=== PATIENT | female | born 1975 | race Caucasian/White ===

== ENCOUNTER 2017-11-09 11:11 | Emergency (ER) | payer MEDICAID, SELFPAY ==
[2017-11-09 11:12] VITALS: BP 144/90; PULSE 68; RESP 16; TEMP 36.8; O2SAT 99; BMI 29.0
--- NOTE | 2017-11-09 11:24 | RAD_ITS ---
STUDY: X-RAY CHEST REASON FOR EXAM: Female, 42 years old. Left-sided chest pain radiating to the scapula TECHNIQUE: Single view of the chest was obtained COMPARISON: April 05, 2014 chest radiograph. FINDINGS: No lung consolidation, pleural effusion or pneumothorax. Cardiac size appears slightly prominent. Osseous structures demonstrate no acute maladies. Slightly elevated right hemidiaphragm. IMPRESSION: No evidence for focal airspace disease. Electronically Signed: Jake Jimenez, at 12:12 EDT Tel , Service support , RAD/Chest 1 View (Portable)
--- NOTE | 2017-11-09 11:25 | EKG12_ITS ---
Test Reason : CHEST OTHER Blood Pressure : / mmHG Vent. Rate : 053 BPM Atrial Rate : 053 BPM P-R Int : 156 ms QRS Dur : 072 ms QT Int : 412 ms P-R-T Axes : 055 084 052 degrees QTc Int : 386 ms Sinus bradycardia Septal infarct , age undetermined Abnormal ECG Confirmed by DAVID RUTHERFORD, MARCIA ([id number]), assignment desk editor SEBASTIAN GILMORE ([id number]) on 11/11/2017 3:29:10 PM Referred By: DEYA Confirmed By:MARCIA HERNANDEZ MD
[2017-11-09 11:26] VITALS: BP 136/90; PULSE 54; RESP 17; O2SAT 98
[2017-11-09] MEDS: Aspirin 81 MG TAB.CHEW 324 MG PO (11:33)
[2017-11-09] MEDS: 0.9% Normal Saline 1,000 ML 150 ML IV (11:33)
[2017-11-09 11:43] LABS: Absolute Neutrophil Count 8.4 X10^3/uL (2.0-7.7); Basophil# 0.02 X10^3/uL; Basophil% 0.2 % (0-1); Eosinophil# 0.22 X10^3/uL; Eosinophils% 1.9 % (0-5); Hematocrit 40.9 % (37-47); Hemoglobin 13.5 g/dl (12.0-15.0); Lymphocyte % 18.5 % (19-41); Mean Corpuscular Hgb 31.2 pg (27.0-32.0); Mean Corpuscular Volume 94.5 fL (81-99); Mean Platelet Vol. 10.3 fl (6.2-12.0); Monocyte# 0.64 X10^3/uL; Monocyte% 5.6 % (0-10); Neutrophil # 8.35 X10^3/uL (2.7-7.7); Neutrophil % 73.6 % (47-70); POSITIVE COUNT NO; POSITIVE DIFFERENTIAL NO; POSITIVE MORPHOLOGY NO; Platelet Count 281 K/mm3 (150-450); RBC Distribution Width CV 14.2 % (11.6-14.6); RBC Distribution Width SD 48.8 fl (35.1-43.9); Red Blood Count 4.33 M/mm3 (4.2-5.4); White Blood Count 11.4 K/mm3 (4.4-11.0)
[2017-11-09 11:54] LABS: D-Dimer Quantitative (DVT/PE) 0.67 FEU/ug/m (0.27-0.49)
--- NOTE | 2017-11-09 11:54 | ED.RN ---
D-DIMER 0.67. AWARE.
[2017-11-09 11:57] LABS: Anion Gap 4 (5-15); BUN 11 mg/dL (7-18); Calcium,Total 9.3 mg/dL (8.5-10.1); Chloride 108 mmol/L (98-107); Creatinine, Serum 0.78 mg/dL (0.55-1.02); EST Glomerular Filtration Rate 86 mL/min (>60); Est Glom Filt Rate - Afr Amer 104 mL/min (>60); Estimated Creatinine Clearance 81.96 ml/min; Glucose 97 mg/dL (74-106); Sodium Level 140 mmol/L (136-145)
--- NOTE | 2017-11-09 12:04 | CT_ITS ---
STUDY: CTA CHEST REASON FOR EXAM: Female, 42 years old. Chest and shoulder pain for many months. Worsening with breathing. History of muscular dystrophy RADIATION DOSAGE (If Supplied By Facility): CTDIvol = ( 23.26 ) mGy, DLP = ( 471.17 ) mGycm TECHNIQUE: The examination was performed with the intravenous administration of 100 ml of Isovue 370 contrast material. Post-processing of the angiographic images was performed, with multiplanar reformation and 3D reconstruction. Individualized dose optimization techniques were used for this CT. COMPARISON: None. FINDINGS: No definite evidence for aortic dissection. Main pulmonary artery and its major branches are within normal limits Beam hardening artifact at the left subclavian artery origin seen No axillary or mediastinal adenopathy No pericardial effusion. Mild dilatation of the left ventricle which can be assessed with cardiac echo. Prior cholecystectomy. No evidence for lung consolidation, pleural effusion or pneumothorax. Central airways patent Degenerative changes in the thoracic spine. IMPRESSION: No evidence for aortic dissection. No definite pulmonary embolus seen. No lung consolidation or pneumothorax. Electronically Signed: Jake Jimenez, at 13:44 EDT Tel , Service support , CT/CTA Chest W/WO Contrast
[2017-11-09 12:45] VITALS: BP 155/101; PULSE 63; RESP 18; O2SAT 100
--- NOTE | 2017-11-09 14:16 | ED.VISSUMM ---
- ER Visit Summary Date of Service: 11/09/17 Chief Complaint: [Chest pain back/shoulder pain\back pain] History of Present Illness: The patient is a 42 F [presents to the emergency department with complaint of some pain in her back for 2 weeks. Patient describes discomfort in her left shoulder. Over last several days patient's developed left-sided chest discomfort that seems to wrap around to her back. The pain is sharp and worse with deep breath. Patient does feel short of breath at times and it hurts to take a deep breath. Patient states that she recently moved back to the worst [place] area and did have to carry some boxes around and was not sure if maybe she pulled something. Patient also concerned about her heart given her symptomatology. Patient has no coronary artery disease history. Patient does have a history of fibromyalgia, muscular dystrophy, anxiety, and tachycardia.] Physical Examination: [HEENT-PERRLA, EOMI. Cranial nerves II through XII grossly intact. TMs clear. Mucous membranes moist. No adenopathy. Cardiovascular-regular rate and rhythm without murmur or ectopy Lungs-clear to auscultation, chest wall stable without crepitus or subcu emphysema. Patient does have tenderness palpation over the left anterior chest wall into the mid axillary line that seems to reproduce her pain. Abdomen-normoactive bowel sounds, soft, nontender, no rebound or rigidity, no peritoneal signs. Extremities-intact ?4, normal range of motion, normal pulses, atraumatic] Test Results: [EKG obtained on arrival shows sinus rhythm with a ventricular rate of 53 bpm with no acute ST segment changes. CBC with differential was obtained that showed a white count of 11.4, hemoglobin 13, hematocrit 41, platelets 281. Chemistries unremarkable. Troponin was less than 0.02. D-dimer was elevated at 0.67. Chest x-ray showed nothing acute. CT scan with IV contrast obtained was negative for PE and negative for dissection essentially nothing acute.] Emergency Department Course and Treatment: [Patient initially denied anything for pain in the emergency department.] Treatment Plan: [Patient will be given a prescription for 12 [place] for severe pain and advised to follow-up with Dr. Joe Darnell within next 5-7 days. I do not feel patient is having an acute coronary syndrome.] I feel patient's symptoms are likely musculoskeletal. Disposition: [Discharged to home in stable condition. Patient advised to return if worsening pain, increasing shortness of breath, hemoptysis, or condition should worsen in any way.] Impression: [Chest yedj-zofmxusz-fjclnzyp uncertain] This note was generated with [employer] dictation software. It may contain incorrect words, spelling, and punctuation that were not noted in review of the chart prior to signing ED Disposition - Plan for ED Patient: Chief Complaint: Chest Other Referrals: Joe Darnell DO [Primary Care Provider] -
--- NOTE | 2017-11-09 14:19 | ED.DCSUM_ITS ---
- ER Visit Summary Date of Service: 11/09/17 Chief Complaint: [Chest pain back/shoulder pain\back pain] History of Present Illness: The patient is a 42 F [presents to the emergency department with complaint of some pain in her back for 2 weeks. Patient describes discomfort in her left shoulder. Over last several days patient's developed left-sided chest discomfort that seems to wrap around to her back. The pain is sharp and worse with deep breath. Patient does feel short of breath at times and it hurts to take a deep breath. Patient states that she recently moved back to the worst [place] area and did have to carry some boxes around and was not sure if maybe she pulled something. Patient also concerned about her heart given her symptomatology. Patient has no coronary artery disease history. Patient does have a history of fibromyalgia, muscular dystrophy, anxiety, and tachycardia.] Physical Examination: [HEENT-PERRLA, EOMI. Cranial nerves II through XII grossly intact. TMs clear. Mucous membranes moist. No adenopathy. Cardiovascular-regular rate and rhythm without murmur or ectopy Lungs-clear to auscultation, chest wall stable without crepitus or subcu emphysema. Patient does have tenderness palpation over the left anterior chest wall into the mid axillary line that seems to reproduce her pain. Abdomen-normoactive bowel sounds, soft, nontender, no rebound or rigidity, no peritoneal signs. Extremities-intact ?4, normal range of motion, normal pulses, atraumatic] Test Results: [EKG obtained on arrival shows sinus rhythm with a ventricular rate of 53 bpm with no acute ST segment changes. CBC with differential was obtained that showed a white count of 11.4, hemoglobin 13, hematocrit 41, platelets 281. Chemistries unremarkable. Troponin was less than 0.02. D- dimer was elevated at 0.67. Chest x-ray showed nothing acute. CT scan with IV contrast obtained was negative for PE and negative for dissection essentially nothing acute.] Emergency Department Course and Treatment: [Patient initially denied anything for pain in the emergency department.] Treatment Plan: [Patient will be given a prescription for 12 [place] for severe pain and advised to follow-up with Dr. Joe Darnell within next 5-7 days. I do not feel patient is having an acute coronary syndrome.] I feel patient's symptoms are likely musculoskeletal. Disposition: [Discharged to home in stable condition. Patient advised to return if worsening pain, increasing shortness of breath, hemoptysis, or condition should worsen in any way.] Impression: [Chest lplr-iclwxncd-mowcksva uncertain] This note was generated with [employer] dictation software. It may contain incorrect words, spelling, and punctuation that were not noted in review of the chart prior to signing ED Disposition - Plan for ED Patient: Chief Complaint: Chest Other Referrals: Joe Darnell DO [Primary Care Provider] -
--- NOTE | 2017-11-09 14:19 | ED.DEP ---
ED Disposition - Plan for ED Patient: Chief Complaint: Chest Other Instructions: ED Chest Pain Atypical Unkn Cause Prescriptions: Hydrocodone Bitart/Apap 5-325 [[place] 5/325] 1 - 2 tab PO Q4H PRN PRN 3 Days #12 tab PRN Reason: Pain Referrals: Joe Darnell DO [Primary Care Provider] - 5-7 Days
[2017-11-09 14:28] VITALS: BP 134/95; PULSE 58; RESP 15; TEMP 36.1; O2SAT 97
== END 2017-11-09 14:29 | disposition home or self-care (01) ==
PROVIDERS: Emergency Provider Emergency Medicine; Family Provider Family Medicine; PCP Family Medicine
DX: R07.89 Other chest pain (principal); R06.00 Dyspnea, unspecified; M54.9 Dorsalgia, unspecified; M25.512 Pain in left shoulder; M79.7 Fibromyalgia; G71.0 Muscular dystrophy; F41.9 Anxiety disorder, unspecified; Z90.49 Acquired absence of other specified parts of digestive tract; Z98.51 Tubal ligation status; Z79.899 Other long term (current) drug therapy; Z72.0 Tobacco use
CPT/HCPCS: 71045; 71275; 80048; 84484; 85025; 85379; 93005; 96360; 96361; 99284; J7030; Q9967

== ENCOUNTER 2017-12-03 11:28 | Emergency (ER) | payer MEDICAID, SELFPAY ==
[2017-12-03] VITALS (7 sets, daily range): BP systolic 116–138; BP diastolic 70–89; PULSE 51–60; RESP 14–16; TEMP 36.4; O2SAT 98–100; BMI 27.3
--- NOTE | 2017-12-03 13:09 | EKG12_ITS ---
Test Reason : CP Blood Pressure : / mmHG Vent. Rate : 051 BPM Atrial Rate : 051 BPM P-R Int : 146 ms QRS Dur : 072 ms QT Int : 450 ms P-R-T Axes : 047 075 047 degrees QTc Int : 414 ms Sinus bradycardia Otherwise normal ECG Confirmed by MARCIA HERNANDEZ MD ([id number]), editor map SEBASTIAN GILMORE ([id number]) on 12/05/2017 1:33:43 PM Referred By: Confirmed By:MARCIA HERNANDEZ MD
--- NOTE | 2017-12-03 13:15 | RAD_ITS ---
STUDY: X-RAY CHEST REASON FOR EXAM: Female, 42 years old. Chest pain. TECHNIQUE: Single AP portable view of the chest. COMPARISON: Comparison is made with prior study dated November 09, 2017. FINDINGS: EKG electrodes are seen. The lungs are clear and expanded. Scattered calcified granulomas. There is no demonstrated pleural abnormality. Normal size heart. Normal mediastinum and abhilash. Normal visualized pulmonary arteries. Normal visualized aortic arch and descending thoracic aorta. Normal visualized thoracic spine. Normal visualized ribs, clavicles, and shoulders. There is no demonstrated abnormality of the visualized soft tissue structures of the upper abdomen. RAD/Chest 1 View (Portable) IMPRESSION: Normal x-ray examination of the chest. Electronically Signed: Alejandro Bowers MD at 13:57 EDT Tel [phone], Service support ,
--- NOTE | 2017-12-03 13:26 | ED.DCSUM_ITS ---
- ER Visit Summary Date of Service: 12/03/17 Chief Complaint: [Chest pain] History of Present Illness: The patient is a 42 F [to the emergency department with chest pain in her left anterior chest and radiates to her neck and arm. Was intermittent over 2 weeks but over the last 2 days has been constant. It is a sharp pain. No shortness of breath but she has been dizzy. She has a history of tachycardia and is been on metoprolol 50 mg twice daily for quite some time. She also has anxiety depression multiple muscular dystrophy and chronic neck pain. She is a smoker. Her mom has mitral valve prolapse and had a heart attack in her 60s her dad had coronary artery disease and had a heart attack in his 60s. She is otherwise healthy. She is not . She has had no injury. No numbness or tingling.] Physical Examination: [] Heart Rate 50 WN WD NAD PERRL EOMI MMM NECK supple and nontender, no masses RRR no murmur rub or gallop, no peripheral edema, symmetric radial pulses CTAB no respiratory distress ABDOMEN is soft and nontender, normal bowel sounds, no distension, no rebound or guarding SKIN is warm and dry no rashes Alert and Oriented x3, CN II-XII in tact, no motor or sensory deficits, gait normal No lymphadenopathy Test Results: [] Emergency Department Course and Treatment: [KG was sinus bradycardia at a rate of 51 there were no acute ischemic changes. Screening blood work was unremarkable. She is PERC negative. Chest x-ray was unremarkable. She did drop her heart rate into the 40s while she was here. At this time we will have her cut her metoprolol in half and follow-up closely with her primary care doctor. She has been having continuous ongoing pain for the last 2 days who I do not think this represents ischemic change as her troponin is normal. She was given precautions for which to return she understands and is agreeable with the plan.] Treatment Plan: [] Disposition: [Discharge] Impression: [Chest pain] This note was generated with [employer] dictation software. It may contain incorrect words, spelling, and punctuation that were not noted in review of the chart prior to signing ED Disposition - Plan for ED Patient: Chief Complaint: Chest Pain Referrals: Joe Darnell DO [Primary Care Provider] -
[2017-12-03 13:58] LABS: Absolute Neutrophil Count 6.6 X10^3/uL (2.0-7.7); Basophil# 0.04 X10^3/uL; Basophil% 0.4 % (0-1); Eosinophil# 0.22 X10^3/uL; Eosinophils% 2.4 % (0-5); Hemoglobin 13.5 g/dl (12.0-15.0); Lymphocyte % 17.1 % (19-41); Mean Corp Hgb Conc 33.8 g/gl (32-36); Mean Corpuscular Volume 94.8 fL (81-99); Mean Platelet Vol. 11.8 fl (6.2-12.0); Monocyte# 0.83 X10^3/uL; Monocyte% 8.9 % (0-10); Neutrophil # 6.63 X10^3/uL (2.7-7.7); Neutrophil % 70.9 % (47-70); Platelet Count 219 K/mm3 (150-450); RBC Distribution Width CV 14.5 % (11.6-14.6); RBC Distribution Width SD 48.6 fl (35.1-43.9); Red Blood Count 4.22 M/mm3 (4.2-5.4); White Blood Count 9.4 K/mm3 (4.4-11.0)
[2017-12-03 13:59] LABS: POSITIVE COUNT NO; POSITIVE DIFFERENTIAL NO; POSITIVE MORPHOLOGY NO
[2017-12-03 14:03] LABS: Anion Gap 7 (5-15); BUN 10 mg/dL (7-18); BUN/Creat Ratio 14.2 RATIO (10-20); Calcium,Total 9.1 mg/dL (8.5-10.1); Chloride 108 mmol/L (98-107); EST Glomerular Filtration Rate 97 mL/min (>60); Est Glom Filt Rate - Afr Amer 118 mL/min (>60); Estimated Creatinine Clearance 95.17 ml/min; Glucose 92 mg/dL (74-106); Potassium 3.9 mmol/L (3.5-5.1); Sodium Level 141 mmol/L (136-145)
--- NOTE | 2017-12-03 15:27 | ED.DEP ---
ED Disposition - Plan for ED Patient: Chief Complaint: Chest Pain Instructions: ED Chest Pain Atypical Unkn Cause Referrals: Joe Darnell DO [Primary Care Provider] - 2 Days Additional Instructions: cut metoprolol dose in half take 25 mg twice a day instead of 50 mg twice a day
== END 2017-12-03 15:41 | disposition home or self-care (01) ==
LOC: ED 13:02
PROVIDERS: Emergency Provider Emergency Medicine; Family Provider Family Medicine; PCP Family Medicine
DX: R07.9 Chest pain, unspecified (principal); R42 Dizziness and giddiness; R00.1 Bradycardia, unspecified; F41.9 Anxiety disorder, unspecified; F32.9 Major depressive disorder, single episode, unspecified; G71.0 Muscular dystrophy; M54.2 Cervicalgia; G89.29 Other chronic pain; Z79.899 Other long term (current) drug therapy; Z72.0 Tobacco use
CPT/HCPCS: 71045; 80048; 84484; 85025; 93005; 99284; A4216

== ENCOUNTER 2018-06-25 13:28 | Emergency (ER) | payer SELFPAY ==
[2018-06-25 13:30] VITALS: BP 164/122; PULSE 85; RESP 18; TEMP 35.6; O2SAT 99; BMI 28.7
--- NOTE | 2018-06-25 13:45 | CT_ITS ---
STUDY: CT ABDOMEN AND PELVIS WITHOUT CONTRAST REASON FOR EXAM: Female, 42 years old. Left flank pain. RADIATION DOSAGE (If Supplied By Facility): CTDIvol = ( 13.38 ) mGy, DLP = ( 633.15 ) mGycm TECHNIQUE: Transaxial images were obtained from the dome of the diaphragm to the symphysis pubis without oral contrast, and without intravenous contrast. Sagittal and coronal images were reconstructed. Individualized dose optimization techniques were used for this CT. COMPARISON: Comparison is made with prior study dated April 19, 2014. FINDINGS: The visualized lung bases are unremarkable. The visualized portions of the heart are within normal limits. Normal liver. There are surgical clips in the gallbladder fossa consistent with a prior cholecystectomy. Normal spleen. Normal pancreas. Normal bilateral adrenal glands. Normal right kidney. Normal left kidney. There is a small hiatal hernia. Normal small intestine. Normal colon. The appendix is visualized and appears normal. There is scattered atherosclerotic calcification of the abdominal aorta, without a demonstrated aneurysm. Normal inferior vena cava. There is borderline retroperitoneal lymphadenopathy with enlarged nodes no greater than 10mm in the short axis diameter. Normal urinary bladder. Follicles are seen in both ovaries. Normal abdominal wall. Normal osseous structures. CT/Abdomen/Pelvis without Cont IMPRESSION: Status post cholecystectomy. Follicles are seen in both ovaries. Electronically Signed: Alejandro Bowers MD at 15:27 EST Tel [phone], Service support ,
[2018-06-25 14:09] LABS: Absolute Lymphocyte Count 2.48 X10^3/ul (0.83-4.51); Absolute Neutrophil Count 6.6 X10^3/uL (2.0-7.7); Basophil# 0.03 X10^3/uL; Basophil% 0.3 % (0-1); Eosinophil# 0.16 X10^3/uL; Eosinophils% 1.6 % (0-5); Hemoglobin 13.8 g/dl (12.0-15.0); Lymphocyte # 2.48 X10^3/ul (4.0); Lymphocyte % 24.8 % (19-41); Mean Corp Hgb Conc 33.7 g/gl (32-36); Mean Corpuscular Hgb 31.9 pg (27.0-32.0); Mean Corpuscular Volume 94.7 fL (81-99); Mean Platelet Vol. 10.7 fl (6.2-12.0); Neutrophil # 6.63 X10^3/uL (2.7-7.7); Neutrophil % 66.2 % (47-70); POSITIVE COUNT NO; POSITIVE DIFFERENTIAL NO; POSITIVE MORPHOLOGY NO; Platelet Count 239 K/mm3 (150-450); RBC Distribution Width SD 47.2 fl (35.1-43.9); Red Blood Count 4.33 M/mm3 (4.2-5.4)
[2018-06-25 14:21] LABS: Anion Gap 7 (5-15); BUN 9 mg/dL (7-18); BUN/Creat Ratio 14.8 RATIO (10-20); Calcium,Total 8.9 mg/dL (8.5-10.1); Chloride 107 mmol/L (98-107); Creatinine, Serum 0.61 mg/dL (0.55-1.02); EST Glomerular Filtration Rate 115 mL/min (>60); Est Glom Filt Rate - Afr Amer 139 mL/min (>60); Estimated Creatinine Clearance 109.21 ml/min; Glucose 89 mg/dL (74-106); Potassium 3.8 mmol/L (3.5-5.1); Sodium Level 140 mmol/L (136-145)
[2018-06-25 14:23] LABS: Mucous, Urine 0 SEEN /hpf (<or=2+)
[2018-06-25 14:25] LABS: Color, Urine Yellow (Yellow); Glucose, Dipstick Normal (Normal); Ketone-Dipstick Negative (Negative); Leukocyte Esterase-Dipstick 100 /ul (Negative); Nitrite-Dipstick Negative (Negative); Occult Blood-Urine 10 /ul (Negative); Protein-Dipstick Negative (Negative); Urine Bilirubin Dipstick Negative (Negative); Urine Clarity Clear (Clear); Urine Urobilinogen Normal (Normal)
--- NOTE | 2018-06-25 14:28 | ED.VISSUMM ---
- ER Visit Summary Date of Service: 06/25/18 Chief Complaint: Left flank pain and low back pain History of Present Illness: The patient is a 42 F the patient presents with left flank and low back pain. She states she was recently treated for a sinus infection. She is on Augmentin. At her seventh day. She states yesterday, she began have a dull ache in her left low back that radiates into her left hip. She denies any fevers or chills. Some mild nausea but denies any vomiting. She states that she has had some increased frequency of urination and there was an odor to it. She denies any history of kidney stone. She denies any history of prior abdominal surgery. Physical Examination: Vital signs reviewed General: Well-nourished, well-developed Head: Normocephalic, atraumatic Eyes: Pupils equal and reactive, extraocular muscles intact Neck, supple, no lymphadenopathy Heart: Regular rate and rhythm Respiratory: No distress, clear bilaterally Abdomen: Soft, nontender, nondistended, no peritoneal signs Back: Nontender Extremities: Nontender, no edema, no cords Skin: Normal color no rash Neuro: Alert and oriented, no focal or lateralizing deficits Test Results: [] Emergency Department Course and Treatment: The patient did have very minimal flank pain. Her abdomen was soft and nontender. I did obtain a CT flank. There is no evidence of obstructing kidney stone or significant polynephritis. Her labs are unremarkable. The patient given fluids and anti-inflammatories. Her pain was improved. Her urine does show some evidence of infection. My concern is that she may have a partially treated urinary tract infection. I did add a culture. The patient has multiple drug allergies. I am going to place her on trimethoprim. My concern just placing her on Macrobid is that there is not enough renal concentration if she is an early pyelonephritis. Patient was counseled concerning symptoms and reasons to return. She will be discharged home. Treatment Plan: [] Disposition: Discharge Impression: Partially treated urinary tract infection This note was generated with [employer] dictation software. It may contain incorrect words, spelling, and punctuation that were not noted in review of the chart prior to signing ED Disposition - Plan for ED Patient: Chief Complaint: Flank Pain Instructions: ED Kidney Infec Female Prescriptions: Naproxen [Naprosyn] 500 mg PO BID PRN #20 tab Trimethoprim [Trimpex] 100 mg PO BID #14 tab Referrals: Joe Darnell DO [Primary Care Provider] -
[2018-06-25 14:29] LABS: Pregnancy, Serum, hCG Quali. NEGATIVE Negative (0-9 Nonpreg)
[2018-06-25 14:33] LABS: Bacteria 1+ /hpf (None Seen); Red Blood Cells-Urine 0-5 SEEN /hpf (0-5); Squamous Epithelial Cells - UA 0-5 SEEN /hpf (5-10); White Blood Cells 5-10 SEEN /hpf (0-5)
[2018-06-25] MEDS: 0.9% Normal Saline 1,000 ML 250 ML IV (14:35)
[2018-06-25] MEDS: Ondansetron 4 MG/2 ML Vial IV (14:35)
[2018-06-25] MEDS: Ketorolac 30 MG/ML Syringe IV (14:35)
[2018-06-25 16:27] VITALS: BP 127/79; PULSE 61; RESP 14; RESP 17; O2SAT 98
== END 2018-06-25 16:29 | disposition home or self-care (01) ==
LOC: ED 15:20
PROVIDERS: Emergency Provider Emergency Medicine; Family Provider Family Medicine; PCP Family Medicine
DX: N39.0 Urinary tract infection, site not specified (principal); N12 Tubulo-interstitial nephritis, not specified as acute or chronic; I10 Essential (primary) hypertension; Z79.899 Other long term (current) drug therapy
CPT/HCPCS: 74176; 80048; 81001; 84703; 85025; 87086; 87088; 96361; 96374; 96375; 99282; J7030; A4216; J2405

== ENCOUNTER 2018-07-26 18:26 | Emergency (ER) | payer SELFPAY ==
[2018-07-26 18:27] VITALS: BP 141/87; PULSE 92; RESP 18; TEMP 36.6; O2SAT 99; BMI 28.5
--- NOTE | 2018-07-26 18:45 | ED.RN ---
RN CALLED FOR EKG, PULLED OLD EKGS FOR
--- NOTE | 2018-07-26 19:03 | EKG12_ITS ---
Test Reason : CP Blood Pressure : / mmHG Vent. Rate : 077 BPM Atrial Rate : 077 BPM P-R Int : 136 ms QRS Dur : 082 ms QT Int : 380 ms P-R-T Axes : 076 089 043 degrees QTc Int : 430 ms Normal sinus rhythm Normal ECG Confirmed by DAVID RUTHERFORD, MARCIA ([id number]), video news editor SEBASTIAN GILMORE ([id number]) on 07/28/2018 9:34:59 AM Referred By: JAMES/AMANDO Confirmed By:MARCIA HERNANDEZ MD
--- NOTE | 2018-07-26 19:03 | RAD_ITS ---
STUDY: X-RAY CHEST REASON FOR EXAM: Female, 42 years old. Substernal chest pain TECHNIQUE: Single AP portable view of the chest. COMPARISON: 12/03/2017 FINDINGS: EKG leads overlie the chest The lungs are clear and expanded. There is no demonstrated pleural abnormality. Normal size heart. Normal mediastinum and abhilash. Normal visualized pulmonary arteries. Normal visualized aortic arch and descending thoracic aorta. Normal visualized thoracic spine. Normal visualized ribs, clavicles, and shoulders. There is no demonstrated abnormality of the visualized soft tissue structures of the upper abdomen. RAD/Chest 1 View (Portable) IMPRESSION: Normal x-ray examination of the chest. Electronically Signed: Nick Cifuentes MD at 21:10 EST , Service support ,
[2018-07-26 19:15] LABS: Absolute Lymphocyte Count 3.02 X10^3/ul (0.83-4.51); Absolute Neutrophil Count 7.4 X10^3/uL (2.0-7.7); Basophil# 0.03 X10^3/uL; Basophil% 0.3 % (0-1); Eosinophil# 0.18 X10^3/uL; Eosinophils% 1.6 % (0-5); Hematocrit 41.7 % (37-47); Hemoglobin 13.9 g/dl (12.0-15.0); Lymphocyte # 3.02 X10^3/ul (4.0); Lymphocyte % 26.3 % (19-41); Mean Corp Hgb Conc 33.3 g/gl (32-36); Mean Corpuscular Hgb 31.5 pg (27.0-32.0); Mean Corpuscular Volume 94.6 fL (81-99); Mean Platelet Vol. 11.1 fl (6.2-12.0); Monocyte# 0.81 X10^3/uL; Monocyte% 7.1 % (0-10); Neutrophil # 7.42 X10^3/uL (2.7-7.7); Neutrophil % 64.5 % (47-70); Platelet Count 233 K/mm3 (150-450); RBC Distribution Width CV 14.1 % (11.6-14.6); RBC Distribution Width SD 48.8 fl (35.1-43.9); Red Blood Count 4.41 M/mm3 (4.2-5.4); White Blood Count 11.5 K/mm3 (4.4-11.0)
[2018-07-26] MEDS: Aspirin 81 MG TAB.CHEW 324 MG PO (19:16)
--- NOTE | 2018-07-26 19:19 | ED.VISSUMM ---
- ER Visit Summary Date of Service: 07/26/18 Chief Complaint: Left-sided chest pain History of Present Illness: The patient is a 42 F past medical history of tachycardia, muscular dystrophy, fibromyalgia and anxiety. Patient has no cardiac history. She is never had a stress test or cardiac catheterization. She is never had a DVT or PE. No recent travel, surgery or immobilization. No calf pain or swelling. No hemoptysis. Patient states she has had left-sided chest pain and feels that is going through her left chest and outer back since Friday afternoon. Not associated specifically with exertion. No pleuritic pain. She has had some nausea and dizziness with at that time she feels hot. She denies any cough. Her father had cardiac history in his 60s. Mom had mitral valve prolapse. Physical Examination: Well-appearing middle-age female. Vital signs are stable. She is afebrile. She does not look septic toxic. She is in no distress. H EENT exam is unremarkable. Neck nontender. No JVD. Lungs clear to auscultation bilaterally. Heart regular rhythm rate about 90 no murmur. She has mild left chest wall discomfort. There is no ecchymosis or bruising. No subcu air crepitance. No redness, warmth or signs of trauma. Abdomen is soft and nontender normal bowel sounds no peritoneal signs. She is moving all 4 extremities. Neurovascular intact. Calves are nontender without edema or cords. She has equal symmetrical radial pulses. Equal symmetrical coat padder strength. Back exam nontender. Neurologically she is awake and alert with no focal motor deficits. Test Results: CBC White count 1.5 hemoglobin 13. Electrolytes unremarkable normal creatinine and gap. Troponin normal. EKG sinus rhythm rate of 77 no acute signs of AL or ischemia. Unchanged from prior EKG from November 2017. Chest x-ray portable 1 view read by myself shows no acute abnormality. Normal cardiac silhouette mediastinum. Normal lung celaya. No bony abnormalities. Emergency Department Course and Treatment: Patient undergo a cardiac workup. Repeat exam patient doing well at 2057. Her pain is atypical. Somewhat reproducible. She has limited cardiac risk factors. I am comfortable with her being discharged home with outpatient follow-up. Treatment Plan: Follow-up with your primary care physician. Return if feeling worse. Disposition: Discharge Impression: Acute left-sided chest pain of uncertain etiology This note was generated with [employer] dictation software. It may contain incorrect words, spelling, and punctuation that were not noted in review of the chart prior to signing ED Disposition - Plan for ED Patient: Chief Complaint: Chest Pain Referrals: Joe Darnell DO [Primary Care Provider] -
[2018-07-26 19:24] LABS: Anion Gap 9 (5-15); BUN 12 mg/dL (7-18); BUN/Creat Ratio 17.8 RATIO (10-20); Calcium,Total 9.1 mg/dL (8.5-10.1); Chloride 107 mmol/L (98-107); Creatinine, Serum 0.67 mg/dL (0.55-1.02); EST Glomerular Filtration Rate 102 mL/min (>60); Est Glom Filt Rate - Afr Amer 124 mL/min (>60); Estimated Creatinine Clearance 95.42 ml/min; Glucose 97 mg/dL (74-106); Potassium 3.6 mmol/L (3.5-5.1); Sodium Level 140 mmol/L (136-145)
[2018-07-26 19:26] LABS: POSITIVE COUNT NO; POSITIVE DIFFERENTIAL NO; POSITIVE MORPHOLOGY NO
--- NOTE | 2018-07-26 19:28 | ED.DCSUM_ITS ---
- ER Visit Summary Date of Service: 07/26/18 Chief Complaint: Left-sided chest pain History of Present Illness: The patient is a 42 F past medical history of tachycardia, muscular dystrophy, fibromyalgia and anxiety. Patient has no cardiac history. She is never had a stress test or cardiac catheterization. She is never had a DVT or PE. No recent travel, surgery or immobilization. No calf pain or swelling. No hemoptysis. Patient states she has had left-sided chest pain and feels that is going through her left chest and outer back since Friday afternoon. Not associated specifically with exertion. No pleuritic pain. She has had some nausea and dizziness with at that time she feels hot. She denies any cough. Her father had cardiac history in his 60s. Mom had mitral valve prolapse. Physical Examination: Well-appearing middle-age female. Vital signs are stable. She is afebrile. She does not look septic toxic. She is in no distress. H EENT exam is unremarkable. Neck nontender. No JVD. Lungs clear to auscultation bilaterally. Heart regular rhythm rate about 90 no murmur. She has mild left chest wall discomfort. There is no ecchymosis or bruising. No subcu air crepitance. No redness, warmth or signs of trauma. Abdomen is soft and nontender normal bowel sounds no peritoneal signs. She is moving all 4 extremities. Neurovascular intact. Calves are nontender without edema or cords. She has equal symmetrical radial pulses. Equal symmetrical maintenance shop technician strength. Back exam nontender. Neurologically she is awake and alert with no focal motor deficits. Test Results: CBC White count 1.5 hemoglobin 13. Electrolytes unremarkable normal creatinine and gap. Troponin normal. EKG sinus rhythm rate of 77 no acute signs of IN or ischemia. Unchanged from prior EKG from November 2017. Chest x-ray portable 1 view read by myself shows no acute abnormality. Normal cardiac silhouette mediastinum. Normal lung celaya. No bony abnormalities. Emergency Department Course and Treatment: Patient undergo a cardiac workup. Repeat exam patient doing well at 2057. Her pain is atypical. Somewhat reproducible. She has limited cardiac risk factors. I am comfortable with her being discharged home with outpatient follow-up. Treatment Plan: Follow-up with your primary care physician. Return if feeling worse. Disposition: Discharge Impression: Acute left-sided chest pain of uncertain etiology This note was generated with [employer] dictation software. It may contain incorrect words, spelling, and punctuation that were not noted in review of the chart prior to signing ED Disposition - Plan for ED Patient: Chief Complaint: Chest Pain Referrals: Joe Darnell DO [Primary Care Provider] -
[2018-07-26 20:17] VITALS: BP 119/85; PULSE 58; RESP 12; O2SAT 96
--- NOTE | 2018-07-26 21:01 | ED.DEP ---
ED Disposition - Plan for ED Patient: Disposition: Home or Assisted Living Chief Complaint: Chest Pain Instructions: ED Chest Pain Atypical Unkn Cause Referrals: Joe Darnell DO [Primary Care Provider] - 3-5 Days Additional Instructions: Call follow-up your primary care physician. Return if you are feeling worse. Discussed with your doctor possible outpatient stress testing.
[2018-07-26 21:04] VITALS: BP 132/89; PULSE 64; PULSE 71; RESP 16; O2SAT 99
== END 2018-07-26 21:08 | disposition home or self-care (01) ==
PROVIDERS: Emergency Provider Emergency Medicine; Family Provider Family Medicine; PCP Family Medicine
DX: R07.9 Chest pain, unspecified (principal); R11.0 Nausea; R42 Dizziness and giddiness; G71.00 Muscular dystrophy, unspecified; M79.7 Fibromyalgia; F41.9 Anxiety disorder, unspecified; Z79.899 Other long term (current) drug therapy; F17.200 Nicotine dependence, unspecified, uncomplicated
CPT/HCPCS: 71045; 80048; 84484; 85025; 93005; 99285; A4216

== ENCOUNTER 2018-10-03 10:54 | Emergency (ER) | payer SELFPAY ==
[2018-10-03 10:55] VITALS: BP 158/99; PULSE 77; RESP 18; TEMP 36.8; O2SAT 99; BMI 28.1
--- NOTE | 2018-10-03 11:32 | EKG12_ITS ---
Test Reason : CP Blood Pressure : / mmHG Vent. Rate : 074 BPM Atrial Rate : 074 BPM P-R Int : 146 ms QRS Dur : 078 ms QT Int : 372 ms P-R-T Axes : 076 090 050 degrees QTc Int : 412 ms Normal sinus rhythm Rightward axis Borderline ECG Confirmed by DAVID RUTHERFORD, MARCIA ([id number]), multimedia editor CONCEPCIÓN FREED ([id number] on 10/05/2018 4:18:52 PM Referred By: DEYA Confirmed By:MARCIA HERNANDEZ MD
--- NOTE | 2018-10-03 11:32 | RAD_ITS ---
STUDY: X-RAY CHEST REASON FOR EXAM: Female, 43 years old. Chest pain. Left arm pain TECHNIQUE: Single AP portable view of the chest. COMPARISON: 07/26/2018 FINDINGS: The lungs are clear and expanded. There is no demonstrated pleural abnormality. Normal size heart. Normal mediastinum and abhilash. Normal visualized pulmonary arteries. Normal visualized aortic arch and descending thoracic aorta. Normal visualized thoracic spine. Normal visualized ribs, clavicles, and shoulders. There is no demonstrated abnormality of the visualized soft tissue structures of the upper abdomen. RAD/Chest 1 View (Portable) IMPRESSION: Normal x-ray examination of the chest. Electronically Signed: Cirilo Cohen DO at 12:16 EDT Tel , Service support ,
[2018-10-03] MEDS: Aspirin 81 MG TAB.CHEW 324 MG PO (11:47)
[2018-10-03 12:17] LABS: Absolute Lymphocyte Count 1.63 X10^3/ul (0.83-4.51); Absolute Neutrophil Count 6.1 X10^3/uL (2.0-7.7); Basophil# 0.02 X10^3/uL; Basophil% 0.2 % (0-1); Eosinophil# 0.18 X10^3/uL; Eosinophils% 2.1 % (0-5); Hematocrit 42.8 % (37-47); Lymphocyte # 1.63 X10^3/ul (4.0); Lymphocyte % 18.8 % (19-41); Mean Corp Hgb Conc 32.7 g/gl (32-36); Mean Corpuscular Volume 94.9 fL (81-99); Mean Platelet Vol. 10.6 fl (6.2-12.0); Monocyte% 8.1 % (0-10); Neutrophil # 6.13 X10^3/uL (2.7-7.7); Neutrophil % 70.6 % (47-70); Platelet Count 241 K/mm3 (150-450); RBC Distribution Width CV 14.5 % (11.6-14.6); RBC Distribution Width SD 50.2 fl (35.1-43.9); Red Blood Count 4.51 M/mm3 (4.2-5.4); White Blood Count 8.7 K/mm3 (4.4-11.0)
[2018-10-03 12:18] LABS: POSITIVE COUNT NO; POSITIVE DIFFERENTIAL NO; POSITIVE MORPHOLOGY NO
[2018-10-03 12:24] LABS: Anion Gap 3 (5-15); BUN 11 mg/dL (7-18); BUN/Creat Ratio 15.6 RATIO (10-20); Calcium,Total 9.1 mg/dL (8.5-10.1); Chloride 109 mmol/L (98-107); EST Glomerular Filtration Rate 97 mL/min (>60); Est Glom Filt Rate - Afr Amer 117 mL/min (>60); Estimated Creatinine Clearance 90.41 ml/min; Glucose 95 mg/dL (74-106); Potassium 3.8 mmol/L (3.5-5.1); Sodium Level 138 mmol/L (136-145)
[2018-10-03 12:45] VITALS: BP 120/88; PULSE 57; RESP 16; O2SAT 99
--- NOTE | 2018-10-03 12:46 | ED.VISSUMM ---
- ER Visit Summary Date of Service: 10/03/18 Chief Complaint: Chest pain History of Present Illness: The patient is a 43 F with history of muscular dystrophy presents with chest pain she has had on and off for a few weeks sometimes they last a few seconds sometimes a few minutes they are described as sharp and stabbing they are not related to food, exertion or anything that she can think of. There is no radiation of the pain there is no back pain or tearing sensation there is no pleuritic component no leg pain swelling or calf tenderness. No DVT risk factors. Physical Examination: Not appear in acute distress. Moist mucous membranes, no obvious facial deformity No C-spine tenderness supple neck. Regular rate and rhythm without any obvious murmurs Clear lungs bilaterally speaking in full sentences without any obvious respiratory distress Abdomen soft and nontender no guarding or rebound Moves all extremities without any difficulty or pain. Skin does not show any obvious rashes or lesions, no trauma. Alert oriented ?3 with no gross focal deficit Emergency Department Course and Treatment: Patient appears well, she has no PE or DVT risk factors, she has a normal troponin with a normal EKG and a heart score of 2. She is safe for discharge. She was reassured. Discharge stable condition Impression: [Chest pain] This note was generated with [employer] dictation software. It may contain incorrect words, spelling, and punctuation that were not noted in review of the chart prior to signing ED Disposition - Plan for ED Patient: Disposition: Home or Assisted Living Instructions: ED Chest Pain Atypical Unkn Cause Referrals: Joe Darnell DO [Primary Care Provider] - 3-5 Days
[2018-10-03 13:59] VITALS: BP 123/91; PULSE 57; RESP 16; O2SAT 99
== END 2018-10-03 14:03 | disposition home or self-care (01) ==
PROVIDERS: Emergency Provider Emergency Medicine; Family Provider Family Medicine; PCP Family Medicine
DX: R07.9 Chest pain, unspecified (principal); G71.00 Muscular dystrophy, unspecified; Z72.0 Tobacco use
CPT/HCPCS: 71045; 80048; 84484; 85025; 93005; 99285; A4216

== ENCOUNTER 2019-03-16 13:04 | Emergency (ER) | payer MEDICAID, SELFPAY ==
[2019-03-16 13:04] VITALS: BP 121/82; PULSE 96; RESP 16; TEMP 36.2; O2SAT 99; BMI 27.4
[2019-03-16] MEDS: LORazepam 0.5 MG Tablet PO (13:29)
--- NOTE | 2019-03-16 13:36 | ED.VIS.GEN ---
History of Present Illness Chief Complaint: Other, Pain/Inj Detail of Chief Complaint: Paresthesia asymmetric, jitteriness Informant: Patient Onset: Yesterday Context: Sudden Onset Timing: Continuous Quality: Paresthesia Location: Left side face, lateral arm and forearm, lateral distal leg and outer toes Current Severity: Mild Maximum Severity: Moderate Worsened by: Nothing per patient Relieved by: Nothing Associated Symptoms: No associated symptoms Narrative: Patient is a 43-year-old woman with history of fibromyalgia who recently had Flexeril added to Zanaflex to treat fibromyalgia. She presents with tingling left parietal area and numbness left side of her face, lateral aspect of her left arm and forearm without involvement of the hand or fingers and lateral distal left leg and outer 2 toes. She denies weakness. She denies headache. She denies change in vision or hearing. She denies trouble with speech or swallowing. She denies cardiac or respiratory symptoms. She does report nausea without vomiting diarrhea. She denies dysuria, frequency, urgency or hematuria. Prior similar symptoms: Yes - Of anxiety Recent Illness/Hospitalization: No - Past Medical History (1) History of fibromyalgia Status: Acute (2) History of anxiety Status: Acute Past Medical History - Allergies and Home Meds Allergies/Adverse Reactions: Allergies cefuroxime [From Ceftin] Allergy (Verified 03/16/19 13:06) Hives ciprofloxacin [From Cipro] Allergy (Verified 03/16/19 13:06) Hives medroxyprogesterone acetate [From Depo-Provera] Allergy (Verified 03/16/19 13:06) Anaphylaxis hydromorphone HCl [From Dilaudid] Adverse Reaction (Verified 03/16/19 13:06) Other morphine Adverse Reaction (Verified 03/16/19 13:06) Other Sulfa (Sulfonamide Antibiotics) Adverse Reaction (Verified 03/16/19 13:06) Rash LORBID Allergy (Uncoded 03/16/19 13:06) Abd cramps/diarrhea Primary Care Physician: Joe Darnell DO [Primary Care Provider] - Prior records reviewed: Yes Surgical History: noncontributory Lives: Alone Smoking Status: Current every day smoker Alcohol: None Drugs: None Review of Systems General: Denies: Chills, Fever, Malaise, Subjective, Sweats, Weight loss, - ENT: Denies: Rhinorrhea, Sore throat Cardiovascular: Denies: Chest pain, Palpitations Respiratory: Denies: Dyspnea, Cough, Dyspnea on exertion Gastrointestinal: Reports: Nausea. Denies: Abdominal pain, Vomiting, Diarrhea, Constipation, Melena, Hematochezia, -, - Genitourinary: Denies: Dysuria, Hematuria, Frequency Musculoskeletal: Reports: Myalgias, Neck pain. Denies: Back pain, Swelling, Extremity Pain Skin: Denies: Rash, Wounds Neurological: Reports: Parasthesia, Numbness. Denies: Headache, Weakness Psych: Reports: Anxiety. Denies: Depression Endocrine: Denies: Polyuria, Polydipsia Hematologic: Denies: Easy bruising, Easy bleeding Physical Exam Vital Signs/Narrative: Vital Signs Temp Pulse Resp BP Pulse Ox 03/16/19 13:04 97.1 F L 96 16 121/82 H 99 Inital Vital Signs reviewed: Yes General: Well nourished, Well developed, No Acute Distress Head: Normocephalic, Atraumatic Eyes: Perrl, EOMI ENT: Moist mucous membranes, No rhinorrhea, TM's clear Neck: Supple, Nontender, No lymphadenopathy, No JVD Cardiovascular: Regular rate, Regular rhythm, No murmurs, Normal S1, Normal S2 Respiratory: No distress, CTA bilaterally, Chest nontender Abdomen: Soft, Nontender, Nondistended, Normal bowel sounds Back: Nontender, Normal Inspection. Negative for: CVA tenderness Extremities: Nontender, No edema. Negative for: Tenderness, Edema, Calf Tenderness Skin: Normal color, No rash, No Trauma. Negative for: Cyanosis, Diaphoresis, Jaundice Neurological: Alert, Oriented x3, Cranial nerves II-XII grossly intact, Normal Strength, Normal Sensation Psychological: Normal affect, Normal Mood Diagnostic/Tx/Re-eval Laboratory Results 03/16/19 13:40 Sodium 141 Potassium 3.9 Chloride 106 Carbon Dioxide 26.0 Anion Gap 9 BUN 10 Creatinine 0.74 Estim Creat Clear Calc 85.52 Est GFR (MDRD) Af Amer 110 Est GFR (MDRD) Non-Af 91 BUN/Creatinine Ratio 13.4 Glucose 99 Calcium 9.2 Basic metabolic panel was unremarkable and specifically sodium and potassium and calcium are normal. - Medical Decision Making Patient with patchy asymmetric numbness left side of her body. This could represent MS. She has no other symptoms to suggest MS, however. This could represent her pain from fibromyalgia and anxiety. Will obtain basic metabolic panel to assess electrolytes. She received a dose of Ativan p.o. Will reassess once laboratory results are available for review and interpretation. Paresthesia uncertain etiology. Patient was informed that this does not represent a stroke. This may represent anxiety. Patient states she feels better. She does not have any questions. Will discharge to home. ED Disposition - Plan for ED Patient: Disposition: Home or Assisted Living Diagnosis: Paresthesia of left arm and leg, Anxiety Instructions: Anxiety Reaction, Paraesthesias Referrals: Joe Darnell DO [Primary Care Provider] - 1 Week
[2019-03-16 14:07] LABS: Anion Gap 9 (5-15); BUN 10 mg/dL (7-18); BUN/Creat Ratio 13.4 RATIO (10-20); Calcium,Total 9.2 mg/dL (8.5-10.1); Chloride 106 mmol/L (98-107); Creatinine, Serum 0.74 mg/dL (0.55-1.02); EST Glomerular Filtration Rate 91 mL/min (>60); Est Glom Filt Rate - Afr Amer 110 mL/min (>60); Estimated Creatinine Clearance 85.52 ml/min; Glucose 99 mg/dL (74-106); Potassium 3.9 mmol/L (3.5-5.1); Sodium Level 141 mmol/L (136-145)
[2019-03-16 14:29] VITALS: BP 118/77; PULSE 61; RESP 12; O2SAT 99
== END 2019-03-16 14:29 | disposition home or self-care (01) ==
PROVIDERS: Emergency Provider Emergency Medicine; Family Provider Family Medicine; PCP Family Medicine
DX: R20.2 Paresthesia of skin (principal); F41.9 Anxiety disorder, unspecified; M79.7 Fibromyalgia; Z79.899 Other long term (current) drug therapy; F17.200 Nicotine dependence, unspecified, uncomplicated
CPT/HCPCS: 36415; 80048; 99283

== ENCOUNTER 2019-03-30 14:00 | Outpatient (RCR) | payer MEDICAID, SELFPAY ==
--- NOTE | 2019-03-10 14:59 | HP.PTEVAL_ITS ---
Patient's Visit Information ADINA LAMAS is a 43 year old F referred to Physical Therapy by Joe Darnell with a diagnosis of fascioscapularhumeral muscular dystrophy. Date of Evaluation: 03/10/19 Physical Therapist: Rashaad Ng, DPT, OCS, CSCS - Visit Plan Frequency: 2x /Week Duration: 2 Months Plan: 2x week for 4-8 weeks for ...Start with. hip and postural strength, pec stretches and scap ROM gently over the next 2-3 weeks adn progress to HEP. Go slow and careful due to FM and MD. Also please do gentle cardio elliptical/bike to tolerance. When I at home with these, we will want to try to progress to an overall general strength protocol for residential. We can only bill aquatic, theract, therex adn manual and only up to 48 total units. Please keep running total in other section. - Subjective Findings: Has fascioscapularhumeral muscular dystrophy and is noticing the progression. stairs look like a penguin toddler. Wants to try adn slow down the weakness. has a lot of atrophy in calves especially. Wants a workout that is careful but challenging to maintain strength and be more active. Is on Xanaflex and muscle relaxer. Has FM also. 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 No consistency. Sleep is not great and never has slept well. Wakes up often. Pain is all the time adn constant mostly through shoulders and neck. Constant spasm and that is [facility]. Works from home and trying to get disability. 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 Tries to stay below 32 hours per week as sitting in chair is not comfortable. Enjoys reading. Taking [employer] online class. Dress , cook cleaning, bathroom are OK. Getting out of tub is scary when bathing so she showers. Everything takes longer. Lives with fiance adn 14 yo daughter. Wants to do ex at home at first adn maybe progress to gym. - Pain Neck Pain Intensity (Out of 10): 6 Pain Intensity Range: 5, 9 Comment: worse end of day. - Objective Walks with R trendelenberg slightly, I, trasnfers I. c/s AROM WFL adn with very little pain today increased. L/S AROM mod limited in ex adn min limited in flexion without increased pain. UE shoulder AROM L to 80 elevation and R to 145. Exteernal rotation 50 B, IR to PSIS B. Posture is elevated and protruding scapula and chin, Scapula stay elevated and limted in motion in depression and retraction B L >R. Elbow and wrist AROM WFL. 2/3 bi and tri reflexes adn sensation WNl to gross light touch. LE AROM WFL but very tight in HS at -30 90/90 and calves at 0 degrees DF. reflexes 2/3 patella and achilles. Sensation LE WNL to gross light touch. Weak obviously in hips 3/5 abd and ext, 3+flexion. Knee ext 4, HSC 3+. PF 3+, DF 4-, inv/ev 3+. coordination at slight deficits in reciprocal taps. L UT has large very tender knot palpable. - Balance Scores Functional Gait Assessment Score: 25 % Disability: 16.6700 - Goals Goal 1:: I appropr HEP to limit future problems Goal Time Frame: 6-8 Weeks Goal 2:: Patient feel 75% better in overall mobiity without increased pain. Goal Time Frame: 6-8 Weeks Goal 3:: Sleep more soundly without pain or deficits. Goal Time Frame: 4-6 Weeks - Rehabilitation Potential Physical Therapy Diagnosis: weakness causing limtiations in function. Rehabilitation Potential: Fair - Anticipated Interventions Patient/Client Instruction: Educate patient on: Condition, Plan of Care For the Purpose of:: To decrease pain, To improve nutrient delivery to tissue, To improve muscle performance and motor function, To improve ability of physical actions for home/community/work/leisure Therapeutic Exercise to Include: Strength training, Postural training, Flexibilty training, Passive ROM, Active ROM For the Purpose of:: To decrease pain, To increase ROM, To improve muscle performance and motor function, To improve ability of physical actions for home/community/work/leisure Thank you for the opportunity to evaluate your patient. For Medicare and Medicare HMO plans, please review the plan of care and approve it. It will need to be FAXED BACK to us at [phone] for Medicare purposes. For Medicare only, by signing this I certify the plan of care. Please let me know if there are questions or concerns regarding this plan of care. Physician Signature: Date:
--- NOTE | 2019-06-08 18:33 | HP.PT.NRP ---
HP - Discharge Summary (1) - Patient Information ADINA LAMAS was seen in my office for initial evaluation on 03/10/19. The following Plan of Care was established for this patient: Initial Frequency: 2x /Week Initial Duration: 2 Months - Anticipated Interventions Patient/Client Instruction: Educate patient on: Condition, Plan of Care For the Purpose of:: To decrease pain, To improve nutrient delivery to tissue, To improve muscle performance and motor function, To improve ability of physical actions for home/community/work/leisure Therapeutic Exercise to Include: Strength training, Postural training, Flexibilty training, Passive ROM, Active ROM For the Purpose of:: To decrease pain, To increase ROM, To improve muscle performance and motor function, To improve ability of physical actions for home/community/work/leisure This patient was last seen in our office 03/30/19. Pertinent comments regarding their Physical therapy will appear below: Pt seen 4 visits of POC but ended up cancelling or no showing for next 4. At this point, it has been over two months adn I will discontinue due to nonattendance. At this point I will be discontinuing this patient from physical therapy. I would be happy to see this patient again in the future if found appropriate by the physician. Thank you! Rashaad Ng, DPT, OCS, CSCS
== END 2019-03-30 19:00 | disposition home or self-care (01) ==
LOC: PT 14:00
PROVIDERS: Family Provider Family Medicine; PCP Family Medicine; Referring Provider Family Medicine
DX: G71.02 Facioscapulohumeral muscular dystrophy (principal)
CPT/HCPCS: 97110; 97163

== ENCOUNTER 2019-05-19 13:49 | Emergency (ER) | payer MEDICAID, SELFPAY ==
[2019-05-19 13:50] VITALS: BP 153/92; PULSE 66; RESP 19; TEMP 36.7; O2SAT 100; BMI 28.3
--- NOTE | 2019-05-19 14:06 | EKG12_ITS ---
Test Reason : CP Blood Pressure : / mmHG Vent. Rate : 063 BPM Atrial Rate : 063 BPM P-R Int : 148 ms QRS Dur : 072 ms QT Int : 400 ms P-R-T Axes : 069 094 059 degrees QTc Int : 409 ms Normal sinus rhythm with sinus arrhythmia Rightward axis Borderline ECG Confirmed by TYSON RFANCO ([id number]), newspaper editor managing MARGOT ASCENCIO ([id number]) on 05/24/2019 8:40:22 AM Referred By: BECKI/AMANDO Confirmed By:TYSON FRANCO
--- NOTE | 2019-05-19 14:06 | RAD_ITS ---
STUDY: X-RAY CHEST REASON FOR EXAM: Female, 43 years old. Chest pain. TECHNIQUE: Single AP portable view of the chest. COMPARISON: Comparison is made with prior examination of October 03, 2018. FINDINGS: EKG electrodes are seen. The lungs are clear and expanded. There is no demonstrated pleural abnormality. Normal size heart. Normal mediastinum and abhilash. Normal visualized pulmonary arteries. Normal visualized aortic arch and descending thoracic aorta. There is a mild dextroscoliosis of the lower thoracic spine. Normal visualized ribs, clavicles, and shoulders. There is no demonstrated abnormality of the visualized soft tissue structures of the upper abdomen. RAD/Chest 1 View (Portable) IMPRESSION: Normal x-ray examination of the chest. Electronically Signed: Alejandro Bowers, at 14:18 EDT , Service support ,
[2019-05-19 14:15] LABS: Absolute Lymphocyte Count 2.45 X10^3/uL (0.83-4.51); Absolute Neutrophil Count 4.4 X10^3/uL (2.0-7.7); Basophil# 0.04 X10^3/uL; Basophil% 0.5 % (0-1); Eosinophil# 0.16 X10^3/uL; Eosinophils% 2.1 % (0-5); Hematocrit 40.6 % (37-47); Hemoglobin 13.4 g/dL (12.0-15.0); Lymphocyte # 2.45 X10^3/ul (4.0); Mean Corpuscular Hgb 31.2 pg (27.0-32.0); Mean Corpuscular Volume 94.4 fL (81-99); Mean Platelet Vol. 10.5 fl (6.2-12.0); Monocyte# 0.57 X10^3/uL; Monocyte% 7.5 % (0-10); NRBC Flagged by Analyzer 0 % (0-5); Neutrophil # 4.41 X10^3/uL (2.7-7.7); Neutrophil % 57.6 % (47-70); Platelet Count 258 K/mm3 (150-450); RBC Distribution Width CV 14.7 % (11.6-14.6); RBC Distribution Width SD 51.2 fl (35.1-43.9); White Blood Count 7.7 K/mm3 (4.4-11.0)
[2019-05-19] MEDS: Aspirin 81 MG TAB.CHEW 324 MG PO (14:28)
[2019-05-19 14:29] LABS: Anion Gap 7 (5-15); BUN 11 mg/dL (7-18); BUN/Creat Ratio 16.6 RATIO (10-20); Calcium,Total 9.2 mg/dL (8.5-10.1); Chloride 107 mmol/L (98-107); Creatinine, Serum 0.66 mg/dL (0.55-1.02); EST Glomerular Filtration Rate 103 mL/min (>60); Est Glom Filt Rate - Afr Amer 125 mL/min (>60); Estimated Creatinine Clearance 95.89 ml/min; Glucose 95 mg/dL (74-106); Potassium 3.9 mmol/L (3.5-5.1); Sodium Level 140 mmol/L (136-145)
--- NOTE | 2019-05-19 14:34 | ED.VISSUMM ---
- ER Visit Summary Date of Service: 05/19/19 Chief Complaint: Rest pain History of Present Illness: The patient is a 43 F past medical history of anxiety and fibromyalgia. Also depression. No prior cardiac disease. No significant family history of cardiac disease. Patient states for 2 weeks she has had left-sided chest pain and also along the sternum. It waxes and wanes but basically is been there constantly. Every day. No nausea. No diaphoresis. No radiation. She also has pain in the left trapezius area she denies any recent travel, surgery or immobilization. No leg pain or swelling. No pleuritic pain. No hemoptysis. Lateral no exertional symptoms. Physical Examination: Middle-aged female no acute distress. Vital signs are stable afebrile. Pulse ox on percent room air no signs of hypoxia. HEENT exam unremarkable. Neck no lymphadenopathy. She does have left-sided trapezius tenderness. Back otherwise not remarkable. Lungs clear to auscultation bilaterally. Heart regular rate and rhythm no murmur. She does have mild parasternal on the left chest wall tenderness. No ecchymosis or bruising. No subcu or no redness. No bony deformities. Abdomen soft and nontender. Extremities moves all 4. Neurovascular intact. Equal symmetrical radial pulses. Normal dressmaker garment fitter strength. Normal dorsi plantar flexion. Calves are nontender without edema or cords. Neurologically she is awake and alert. Test Results: Chest x-ray normal cardiac silhouette no acute abnormality read both by myself the radiologist. One view. Read EKG sinus rhythm rate of 63 no acute signs of MT or ischemia. CBC normal white count 7. Hemoglobin 13. Chemistries normal. Troponin normal. Emergency Department Course and Treatment: Treated with aspirin. On repeat exam at 1430 while she is doing well. We went over all test results. Given her troponin is normal she has reproducible pain and a normal EKG I feel this is most likely musculoskeletal pain and not cardiac etiology. She has no PE risk factors nor family history. Treatment Plan: Motrin for pain. Ice to her chest. Follow-up as needed. Return if worse. Disposition: Discharge Impression: Acute left-sided chest wall pain prior This note was generated with [employer] dictation software. It may contain incorrect words, spelling, and punctuation that were not noted in review of the chart prior to signing ED Disposition - Plan for ED Patient: Referrals: Joe Darnell DO [Primary Care Provider] -
--- NOTE | 2019-05-19 14:37 | ED.DEP ---
ED Disposition - Plan for ED Patient: Disposition: Home or Assisted Living Instructions: CHEST WALL PAIN, Costochondritis Referrals: Joe Darnell DO [Primary Care Provider] - 1 Week if not improving Additional Instructions: Ice to your chest wall. Motrin for pain and inflammation. Hot shower warm bath for your back and neck muscles.
[2019-05-19 14:41] VITALS: BP 129/77; PULSE 62; RESP 15; O2SAT 97; O2SAT 98
== END 2019-05-19 14:42 | disposition home or self-care (01) ==
PROVIDERS: Emergency Provider Emergency Medicine; Family Provider Family Medicine; PCP Family Medicine
DX: R07.89 Other chest pain (principal); F41.9 Anxiety disorder, unspecified; F32.9 Major depressive disorder, single episode, unspecified; M79.7 Fibromyalgia; G35 Multiple sclerosis; Z79.899 Other long term (current) drug therapy; Z72.0 Tobacco use
CPT/HCPCS: 71045; 80048; 84484; 85025; 93005; 99285

== ENCOUNTER 2020-06-28 08:30 | Emergency (ER) | payer MEDICAID, SELFPAY ==
[2020-06-28 08:31] VITALS: BP 120/104; PULSE 78; RESP 16; TEMP 36.3; O2SAT 97; BMI 26.9
--- NOTE | 2020-06-28 08:44 | ED.VIS.UPPEX ---
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 This is happened many times before and she dislocates fairly easily, oftentimes she can get it back in herself but not today and it is hurting severely. She states she did not have a major injury, she just laid down on the couch at home and must of landed wrong and felt like something tore as she dislocated her shoulder again. She has never had surgery on it. She denies any other injury. - Past Medical History (1) Muscular dystrophy Status: Chronic (2) History of anxiety Status: Chronic (3) History of fibromyalgia Status: Chronic Past Medical History - Allergies and Home Meds Allergies/Adverse Reactions: Allergies amoxicillin Allergy (Verified 06/28/20 08:37) Hives cefuroxime [From Ceftin] Allergy (Verified 05/19/19 13:55) Hives ciprofloxacin [From Cipro] Allergy (Verified 05/19/19 13:55) Hives medroxyprogesterone acetate [From Depo-Provera] Allergy (Verified 05/19/19 13:55) Anaphylaxis hydromorphone HCl [From Dilaudid] Adverse Reaction (Verified 05/19/19 13:55) Other morphine Adverse Reaction (Verified 05/19/19 13:55) Other Sulfa (Sulfonamide Antibiotics) Adverse Reaction (Verified 05/19/19 13:55) Rash LORBID Allergy (Uncoded 05/19/19 13:55) Abd cramps/diarrhea Primary Care Physician: Goldie Cannon DO [STAFF PHYSICIAN] - 1-2 Weeks (or sooner; call for follow up) Joe Darnell DO [Primary Care Provider] - Surgical History: noncontributory Smoking Status: Former smoker Review of Systems General: Denies: Chills, Fever, Sweats Eyes: Denies: Visual changes - bilaterally, Diplopia ENT: Denies: Rhinorrhea, Sore throat Cardiovascular: Denies: Chest pain, Palpitations Respiratory: Denies: Dyspnea, Cough, Dyspnea on exertion Gastrointestinal: Denies: Abdominal pain, Nausea, Vomiting, Diarrhea, Melena, Hematochezia Genitourinary: Denies: Dysuria, Hematuria, Frequency Musculoskeletal: Reports: Extremity Pain. Denies: Neck pain, Back pain Skin: Denies: Rash, Wounds Neurological: Reports: Weakness - Left upper extremity, Numbness - Left upper extremity. Denies: Headache Physical Exam Vital Signs/Narrative: Vital Signs Temp Pulse Resp BP Pulse Ox 06/28/20 08:31 97.3 F L 78 16 120/104 H 97 General: Well nourished, Well developed, - - Well-appearing no distress Head: Normocephalic, Atraumatic Eyes: Perrl, EOMI ENT: No Trauma, Moist Mucous Membranes Neck: Nontender, Full ROM Cardiovascular: - - 2+/4 bilateral radial pulses Respiratory: No distress Extremeties: Deformity and tenderness consistent with an anterior left shoulder dislocation. Skin intact. No acromioclavicular tenderness or deformity. No other areas of tenderness. Other 3 extremities are atraumatic. Skin: Normal color, No rash, No Trauma - Skin intact left upper extremity Neurological: Alert, Oriented x3, Cranial nerves II-XII grossly intact, Parasthesia - Dorsal left forearm and most of hand, very mild subjective paresthesias axillary nerve distribution., Weakness - Limited ability to curl left fingers and spread/abduct them, not able to dorsiflex at the wrist. Neurologically intact throughout all 3 other extremities Psychological: Normal affect, Normal Mood Diagnostic/Tx/Re-eval Clinical Impression(s) from Imaging Studies Shoulder X-Ray 06/28/20 08:55 IMPRESSION: Anterior inferior dislocation of the glenohumeral joint. Electronically Signed: Alejandro Bowers, at 9:21 EST , Service support , Shoulder X-Ray 06/28/20 09:35 IMPRESSION: Satisfactory reduction of the glenohumeral joint. Electronically Signed: Alejandro Bowers, at 10:06 EST , Service support , - Medical Decision Making Patient provided verbal consent after x-rays confirmed anterior dislocation of the left shoulder with no fracture, after patient was given IM Dilaudid knowing she was a very difficult stick for an IV and paramedics were unsuccessful. Gave her options of IV versus IM treatment. This really helped a lot and she was able to relax her left shoulder girdle musculature in order to attempt reduction without procedural sedation which was successful. See the procedure note. Patient placed in a sling and given follow-up instructions with orthopedics. Procedures Procedure(s): Left shoulder reduction-anterior dislocation initially attempted Milch maneuver, but there is no great feedback for reduction and she appeared to have subacromial gap. Using an assistant director of residence life, traction countertraction technique was attempted, and although there is no great feedback felt by the patient or me with this, the subacromial gap appeared to resolve, and patient was able to move her shoulder fully. Postreduction x-rays confirmed reduction. No postprocedural fractures noted. ED Disposition - Plan for ED Patient: Disposition: Home or Assisted Living Diagnosis: Dislocation of shoulder, anterior, left, closed Instructions: ED Dislocation: Shoulder (Reduced), ED Sling and Swathe Prescriptions: traMADol [Ultram] 50 mg PO Q4H PRN PRN 2 Days #12 tablet PRN Reason: Pain Transmission Status: Sent to [id number] Referrals: Joe Darnell DO [Primary Care Provider] - Goldie Cannon DO [STAFF PHYSICIAN] - 1-2 Weeks (or sooner; call for follow up)
[2020-06-28] MEDS: Ondansetron ODT 4 MG Tablet 8 MG PO (08:50)
[2020-06-28] MEDS: HYDROmorphone 1 MG/ML Syringe IM (08:50)
--- NOTE | 2020-06-28 08:55 | RAD_ITS ---
STUDY: X-RAY - LEFT SHOULDER REASON FOR EXAM: Female, 44 years old. pt. states her shoulder chronically dislocates, pain TECHNIQUE: 2 view(s) of the shoulder. COMPARISON: None. FINDINGS: There is anterior inferior dislocation of the glenohumeral joint. Normal acromioclavicular joint. Normal acromion. Normal humeral head and visualized proximal humerus. The soft tissue structures are unremarkable. Normal visualized pulmonary apex. RAD/Shoulder min 2 Views IMPRESSION: Anterior inferior dislocation of the glenohumeral joint. Electronically Signed: Alejandro Bowers, at 9:21 EST , Service support ,
--- NOTE | 2020-06-28 09:35 | RAD_ITS ---
STUDY: X-RAY - LEFT SHOULDER REASON FOR EXAM: Female, 44 years old. Post reduction TECHNIQUE: 3 view(s) of the shoulder. COMPARISON: None. FINDINGS: Normal glenohumeral articulation. Normal acromioclavicular joint. Normal acromion. Normal humeral head and visualized proximal humerus. The soft tissue structures are unremarkable. Normal visualized pulmonary apex. RAD/Shoulder min 2 Views IMPRESSION: Satisfactory reduction of the glenohumeral joint. Electronically Signed: Alejandro Bowers, at 10:06 EST , Service support ,
[2020-06-28 10:53] VITALS: BP 129/74; PULSE 68; RESP 15; O2SAT 97
== END 2020-06-28 11:04 | disposition home or self-care (01) ==
LOC: ED 10:21
PROVIDERS: Emergency Provider Emergency Medicine; PCP Family Medicine
DX: S43.015A Anterior dislocation of left humerus, initial encounter (principal); X58.XXXA Exposure to other specified factors, initial encounter; Y93.9 Activity, unspecified; Y92.9 Unspecified place or not applicable; Y99.9 Unspecified external cause status; G71.00 Muscular dystrophy, unspecified; M79.7 Fibromyalgia; F41.9 Anxiety disorder, unspecified; Z79.899 Other long term (current) drug therapy; Z87.891 Personal history of nicotine dependence
CPT/HCPCS: 23650; 73030; 96372; 99284

== ENCOUNTER 2021-04-13 07:20 | Emergency (ER) | payer MEDICAID, SELFPAY ==
[2021-04-13 07:23] VITALS: BP 114/56; PULSE 88; RESP 18; TEMP 37; O2SAT 97; BMI 27.1
--- NOTE | 2021-04-13 07:28 | RAD_ITS ---
STUDY: X-RAY - LEFT SHOULDER REASON FOR EXAM: Left shoulder pain, status post dislocation with reduction. TECHNIQUE: 5 view(s) of the shoulder. COMPARISON: Radiographs 06/28/2020. FINDINGS: Normal glenohumeral articulation. There is acromioclavicular arthrosis. Normal acromion. Normal humeral head and visualized proximal humerus. The soft tissue structures are unremarkable. Normal visualized pulmonary apex. RAD/Shoulder min 2 Views IMPRESSION: Acromioclavicular arthrosis. Reduction of glenohumeral dislocation. Electronically Signed: Tramaine Andujar MD at 8:25 EDT Tel , Service support ,
--- NOTE | 2021-04-13 07:53 | EDS_ITS ---
HPI History of Present Illness Chief Complaint: Upper Extremity Injury Informant: patient Narrative Narrative: Patient is a 45 year old female with history of muscular dystrophy, fibromyalgia and anxiety as well as recurrent left shoulder dislocations presenting with a left shoulder dislocation. Patient states she woke up and was stretching when her shoulder popped out. She could not get back on her own so she called EMS. She denies associated numbness or tingling. While she was on the way here her shoulder spontaneously reduced. She states she still has some pain but feels much better. Her last dislocation requiring ER evaluation was in June 2020. Patient states it has gone out a couple times since but spontaneously reduced. She did follow-up with orthopedics, Dr. Cannon, but decided against surgery because of her muscular dystrophy. No other complaints at this time. [facility] Medical History (Updated 04/13/21 @ 08:[address] Sol Lin DO) Cervical spondylosis Fibromyalgia FSHD (facioscapulohumeral muscular dystrophy) Ruptured ectopic Home Medications metoprolol tartrate 25 mg PO BID 06/10/13 [History Last Taken 05/19/19 08:00] tizanidine 4 mg PO TID 03/16/19 [History Last Taken 05/18/19 21:00] buspirone 10 po.syringe PO BID 05/19/19 [History Last Taken 05/18/19] Allergy/AdvReac Type Severity Reaction Status Date / Time pineapple Allergy Intermediate hives, Verified 04/13/21 07:28 swelling amoxicillin Allergy Hives Verified 04/13/21 07:28 cefuroxime [From Ceftin] Allergy Hives Verified 04/13/21 07:28 ciprofloxacin [From Cipro] Allergy Hives Verified 04/13/21 07:28 medroxyprogesterone acetate Allergy Anaphylaxis Verified 04/13/21 07:28 [From Depo-Provera] hydromorphone HCl AdvReac Other Verified 04/13/21 07:28 [From Dilaudid] morphine AdvReac Other Verified 04/13/21 07:28 Sulfa (Sulfonamide AdvReac Rash Verified 04/13/21 07:28 Antibiotics) LORBID Allergy Abd Uncoded 04/13/21 07:28 cramps/diarrhea Family History Father Diabetes Hypertension Myocardial infarction End stage renal disease Mother Diabetes Hypertension Surgical History History of cholecystectomy Social History household members: significant other and children housing: house Smoking Status: Never smoker alcohol intake: never do you feel safe at home: Yes ROS ROS ED Constitutional Constitutional ED: Denies chills, fever(s) or malaise Eyes Eyes: Denies blurry vision or loss of vision ENT ENT ED: Denies rhinorrhea or sore throat Cardiovascular Cardiovascular: Denies chest pain or dizziness Respiratory/Chest Respiratory/Chest: Denies cough or dyspnea Gastrointestinal Gastrointestinal: Denies nausea or vomiting Genitourinary Genitourinary ED: Denies dysuria or hematuria Musculoskeletal Musculoskeletal: Reports other Details: left shoulder pain Integumentary Denies rash or wounds Neurologic Neurologic: Denies focal weakness or headache(s) Psychiatric Psychiatric: Denies anxiety or behavioral changes EXAM Physical Exam Const Vital Signs: 04/13/21 07:23 Temperature 98.6 F Temperature Source Oral Pulse Rate 88 Respiratory Rate 18 Blood Pressure 114/56 L Blood Pressure Mean 75 Pulse Ox 97 Oxygen Delivery Method Room Air Positive well nourished and well developed General Appearance ED: well developed HEENT normocephalic and atraumatic Eyes PERRL Neck full ROM and supple Chest Wall inspection of chest normal Resp normal respiratory effort and clear to auscultation bilaterally Cardio regular rate and regular rhythm Cardio Narrative: 2+ radial pulses Extremity Extremity Narrative: Patient holding her left upper extremity internally rotated and flexed at the elbow. No bony abnormality appreciated. No joint abnormality appreciated. No pinpoint area of tenderness of the shoulder. Because of recent dislocation with concern for spontaneous reduction, range of motion not attempted. Neuro oriented x3, no focal motor deficits and no sensory deficits noted Sensorium / Orientation: alert Motor Exam: Negative for general weakness Psych mental status grossly normal Skin Lesions: no lesions MDM MDM MDM Narrative Medical decision making narrative: Patient is evaluated for concern of left shoulder dislocation. She states it spontaneously reduced in route via EMS. Her pain has significantly proved since then. Is given a dose of Motrin in the ER. X-ray obtained confirmed reduction. Patient given orthopedics for follow- up. She has a sling to use at home. Counseled return precautions. Discharge Plan Triage Chief Complaint: Upper Extremity Injury ED Provider: Sol Lin Dx/Rx/DC Orders Clinical Impression: Recurrent dislocation of left shoulder Instructions: ED Dislocation: Shoulder (Reduced) Prescriptions: No Action metoprolol tartrate 25 MG tablet 25 mg PO BID RF: 0 tizanidine 4 MG tablet 4 mg PO TID RF: 0 buspirone 10 MG tablet 10 po.syringe PO BID RF: 0 Primary Care Provider: Joe Darnell Referrals: Diogenes Truong DO [STAFF PHYSICIAN] - Joe Darnell DO [Primary Care Provider] - Disposition Disposition: Home, Self Care
[2021-04-13] MEDS: Ibuprofen 600 MG Tablet PO (08:09)
== END 2021-04-13 08:42 | disposition home or self-care (01) ==
PROVIDERS: Emergency Provider Emergency Medicine; PCP Family Medicine
DX: M24.412 Recurrent dislocation, left shoulder (principal); G71.02 Facioscapulohumeral muscular dystrophy; M79.7 Fibromyalgia; Z79.899 Other long term (current) drug therapy
CPT/HCPCS: 73030; 99284

== ENCOUNTER 2021-04-26 10:55 | Emergency (ER) | payer MEDICAID, SELFPAY ==
[2021-04-26 10:56] VITALS: BP 158/96; PULSE 99; RESP 16; TEMP 36.2; O2SAT 96; BMI 26.1
--- NOTE | 2021-04-26 14:11 | ED.VIS.FEGU ---
HPI HPI - Female History of Present Illness Chief Complaint: Vag Bleeding Detail of Chief Complaint: Abnormal vaginal bleeding. Informant: patient Pain Pain: Positive for Pelvic Pain and Vaginal Pain; Negative for Vulvar Pain Onset: Today Context: Sudden Onset Timing: Continuous and Waxes and wanes Quality: Positive for Cramping Current Severity: Mild Maximum Severity: Moderate Worsened by: - (Nothing specifically) Relieved by: - (Nothing) Bleeding Issue: Positive for Vaginal bleeding Onset: Hours Context: Sudden Onset Timing: Continuous Current Severity: Heavy Associated Symptoms P: 1 Ab: 0 Narrative Narrative: Patient is a 45-year-old woman status post tubal ligation. She states she had both of her tubes removed. She presents because of vaginal bleeding. She also complains of cramping pain. She has no symptoms of . She denies bruising easily. She has no other complaints. Prior similar symptoms: No Recent Illness/Hospitalization: No [facility] Medical History (Updated 04/26/21 @ 14:[address] Tariq Moses MD) Cervical spondylosis Fibromyalgia FSHD (facioscapulohumeral muscular dystrophy) Ruptured ectopic Home Medications metoprolol tartrate 25 mg PO BID 06/10/13 [History Last Taken 05/19/19 08:00] tizanidine 4 mg PO TID 03/16/19 [History Last Taken 05/18/19 21:00] buspirone 10 po.syringe PO BID 05/19/19 [History Last Taken 05/18/19] doxycycline monohydrate 100 mg PO BID #28 capsule 04/26/21 [Rx Last Taken Unknown] Allergy/AdvReac Type Severity Reaction Status Date / Time pineapple Allergy Intermediate hives, Verified 04/26/21 10:59 swelling amoxicillin Allergy Hives Verified 04/26/21 10:59 cefuroxime [From Ceftin] Allergy Hives Verified 04/26/21 10:59 ciprofloxacin [From Cipro] Allergy Hives Verified 04/26/21 10:59 medroxyprogesterone acetate Allergy Anaphylaxis Verified 04/26/21 10:59 [From Depo-Provera] hydromorphone HCl AdvReac Other Verified 04/26/21 10:59 [From Dilaudid] morphine AdvReac Other Verified 04/26/21 10:59 Sulfa (Sulfonamide AdvReac Rash Verified 04/26/21 10:59 Antibiotics) LORBID Allergy Abd Uncoded 04/26/21 10:59 cramps/diarrhea Family History Father Diabetes Hypertension Myocardial infarction End stage renal disease Mother Diabetes Hypertension Surgical History History of cholecystectomy Social History household members: significant other and children housing: house Smoking Status: Never smoker alcohol intake: never do you feel safe at home: Yes ROS ROS ED Constitutional Constitutional ED: Denies chills, fever(s) or subjective Eyes Eyes: Denies blurry vision, change in vision or diplopia ENT ENT ED: Denies ear pain, rhinorrhea or sore throat Cardiovascular Cardiovascular: Denies chest pain, palpitations or racing heartbeat Respiratory/Chest Respiratory/Chest: Denies cough, dyspnea, dyspnea on exertion, sputum or stridor Gastrointestinal Gastrointestinal: Denies abdominal pain, diarrhea, nausea or vomiting Genitourinary Genitourinary ED: Reports vaginal bleeding; Denies dysuria, hematuria, urinary frequency or vaginal discharge Musculoskeletal Musculoskeletal: Denies arthralgias, myalgias or neck pain Integumentary Denies abscess or rash Neurologic Neurologic: Denies headache(s) or weakness Psychiatric Psychiatric: Denies anxiety or depression Endocrine Endocrinology: Denies polydipsia, polyphagia or polyuria Hematologic/Lymphatic Hematologic/Lymphatic: Denies easy bleeding or easy bruising EXAM Physical Exam Const Vital Signs: 04/26/21 10:56 Temperature 97.1 F L Temperature Source Temporal Pulse Rate 99 Respiratory Rate 16 Blood Pressure 158/96 H Blood Pressure Mean 116 Pulse Ox 96 Oxygen Delivery Method Room Air Positive well nourished and well developed General Appearance ED: well developed and NAD HEENT Reports TM's clear and moist mucous membranes HEENT Narrative: Head is atraumatic normocephalic. Ears normal. Nares patent. Tympanic Membrane ED: Yes TM's clear Eyes PERRL and EOMs intact bilaterally General Eye ED: Negative for pale conjunctiva or scleral icterus Neck no lymphadenopathy, supple and no JVD Chest Wall inspection of chest normal Resp normal respiratory effort and clear to auscultation bilaterally Cardio regular rate, regular rhythm, S1 normal heart sound, no murmurs and no JVD GI normal to inspection, nondistended, normoactive bowel sounds, soft to palpation and non-tender no CVA tenderness External Female Exam: normal appearance of the urethra; Negative for inguinal lymphadenopathy, erythema, externally tender, external swelling, external lesion, external laceration, ecchymosis, urethral discharge or lesion of urethra Speculum Exam - Vagina: vaginal bleeding, vaginal mass, vaginal tenderness and other Patient has a small cystocele. There is tenderness over the cystocele. ; Negative for vagina atrophic mucosa, vaginal cyst, vaginal erythema, foreign body in vagina, vaginal laceration, vaginal lesion, tissue present in vagina, vaginal swelling, vaginal polyp, vaginal discharge or vaginal ecchymosis Speculum Exam - Cervix: cervical os closed and cervical tenderness; Negative for tissue present in the cervical os, cervical bleeding, mucoid cervix, watery cervix, abnormal cervical discharge, cervical lesion, cervical mass or cervical laceration Bimanual Exam - Vag & Uterus: normal vaginal palpation, normal cervical palpation, cervical motion tenderness, cervical tenderness, uterine size normal, uterine shape normal, uterine mobility normal and uterine consistency normal; Negative for normal bimanual exam, bladder normal to palpation or uterus non-tender Bimanual Exam - Adnexa, Other: normal adnexae and cystocele; Negative for pelvic support normal Back/Spine no CVA tenderness Extremity normal to inspection and full ROM General Extremety ED: Negative for edema or tenderness General Extremity: Negative for edema Neuro oriented x3 and CN's II-XII intact bilaterally Sensorium / Orientation: alert, oriented to person, oriented to place and oriented to time Psych mental status grossly normal Skin no rashes or lesions noted and no wounds MDM MDM MDM Narrative Medical decision making narrative: Will obtain H&H, pelvic exam and reevaluate. Patient has cervical motion tenderness with positive chandelier sign. Patient informed that she had intercourse on Friday. She had pain since intercourse. Will test for GC and chlamydia and treat with doxycycline since she is allergic to cephalosporin. She was placed on the 14-day course of doxycycline. Discharge Plan Triage Chief Complaint: Vag Bleeding ED Provider: Tariq Moses Dx/Rx/DC Orders Clinical Impression: Abnormal vaginal bleeding, Pelvic pain, Bladder cystocele Instructions: Anatomy of the Female Urinary Tract, ED Dysfunctional Uterine Bleeding, ED Pelvic Pain, Unknown Cause Prescriptions: New doxycycline monohydrate 100 MG capsule 100 mg PO BID Qty: 28 RF: 0 No Action metoprolol tartrate 25 MG tablet 25 mg PO BID RF: 0 tizanidine 4 MG tablet 4 mg PO TID RF: 0 buspirone 10 MG tablet 10 po.syringe PO BID RF: 0 Primary Care Provider: Joe Darnell Referrals: Joe Darnell DO [Primary Care Provider] - 3-5 Days if not improving Disposition Disposition: Home, Self Care
[2021-04-26] MEDS: Doxycycline 100 MG CAPSULE PO (14:30)
--- NOTE | 2021-04-26 15:00 | ED.VIS.FEGU ---
HPI HPI - Female History of Present Illness Chief Complaint: Vag Bleeding PFSH PFSH Medical History (Updated 04/26/21 @ 14:[address] Tariq Moses MD) Cervical spondylosis Fibromyalgia FSHD (facioscapulohumeral muscular dystrophy) Ruptured ectopic Home Medications metoprolol tartrate 25 mg PO BID 06/10/13 [History Last Taken 05/19/19 08:00] tizanidine 4 mg PO TID 03/16/19 [History Last Taken 05/18/19 21:00] buspirone 10 po.syringe PO BID 05/19/19 [History Last Taken 05/18/19] doxycycline monohydrate 100 mg PO BID #28 capsule 04/26/21 [Rx Last Taken Unknown] Allergy/AdvReac Type Severity Reaction Status Date / Time pineapple Allergy Intermediate hives, Verified 04/26/21 10:59 swelling amoxicillin Allergy Hives Verified 04/26/21 10:59 cefuroxime [From Ceftin] Allergy Hives Verified 04/26/21 10:59 ciprofloxacin [From Cipro] Allergy Hives Verified 04/26/21 10:59 medroxyprogesterone acetate Allergy Anaphylaxis Verified 04/26/21 10:59 [From Depo-Provera] hydromorphone HCl AdvReac Other Verified 04/26/21 10:59 [From Dilaudid] morphine AdvReac Other Verified 04/26/21 10:59 Sulfa (Sulfonamide AdvReac Rash Verified 04/26/21 10:59 Antibiotics) LORBID Allergy Abd Uncoded 04/26/21 10:59 cramps/diarrhea Family History Father Diabetes Hypertension Myocardial infarction End stage renal disease Mother Diabetes Hypertension Surgical History History of cholecystectomy Social History household members: significant other and children housing: house Smoking Status: Never smoker alcohol intake: never do you feel safe at home: Yes EXAM Physical Exam Const Vital Signs: 04/26/21 10:56 Temperature 97.1 F L Temperature Source Temporal Pulse Rate 99 Respiratory Rate 16 Blood Pressure 158/96 H Blood Pressure Mean 116 Pulse Ox 96 Oxygen Delivery Method Room Air Discharge Plan Triage Chief Complaint: Vag Bleeding ED Provider: Tariq Moses Dx/Rx/DC Orders Clinical Impression: Abnormal vaginal bleeding, Pelvic pain, Bladder cystocele Instructions: Anatomy of the Female Urinary Tract, ED Dysfunctional Uterine Bleeding, ED Pelvic Pain, Unknown Cause Prescriptions: New doxycycline monohydrate 100 MG capsule 100 mg PO BID Qty: 28 RF: 0 No Action metoprolol tartrate 25 MG tablet 25 mg PO BID RF: 0 tizanidine 4 MG tablet 4 mg PO TID RF: 0 buspirone 10 MG tablet 10 po.syringe PO BID RF: 0 Primary Care Provider: Joe Darnell Referrals: Joe Darnell DO [Primary Care Provider] - 3-5 Days if not improving Disposition Disposition: Home, Self Care
[2021-04-26 15:10] VITALS: BP 130/76; PULSE 61; RESP 12; O2SAT 98
[2021-04-26 16:24] LABS: Chlamydia Trachomatis by PCR Negative (Negative); Neisserai gonorrhoeae by PCR Negative (Negative); Probe Check PASS; Sample Adequacy Control PASS; Specimen Processing Control PASS
== END 2021-04-26 15:11 | disposition home or self-care (01) ==
PROVIDERS: Emergency Provider Emergency Medicine; PCP Family Medicine
DX: N93.9 Abnormal uterine and vaginal bleeding, unspecified (principal); R10.2 Pelvic and perineal pain; N81.10 Cystocele, unspecified; M79.7 Fibromyalgia; Z88.1 Allergy status to other antibiotic agents; Z79.899 Other long term (current) drug therapy
CPT/HCPCS: 87491; 87591; 99283

== ENCOUNTER 2021-09-09 20:32 | Emergency (ER) | payer BC, MEDICAID, SELFPAY ==
[2021-09-09 20:33] VITALS: BP 159/97; PULSE 95; RESP 18; TEMP 36.4; O2SAT 96; BMI 28.6
--- NOTE | 2021-09-09 20:57 | EKG12_ITS ---
Test Reason : CP Blood Pressure : / mmHG Vent. Rate : 065 BPM Atrial Rate : 065 BPM P-R Int : 138 ms QRS Dur : 074 ms QT Int : 392 ms P-R-T Axes : 034 086 053 degrees QTc Int : 407 ms Normal sinus rhythm Normal ECG Confirmed by GORAN RUTHERFORD, SOPHIA ([id number]), avid editor MARGOT ASCENCIO ([id number]) on 09/13/2021 8:34:09 AM Referred By: ESTUAROD Confirmed By:SOPHIA ZIMMER MD
--- NOTE | 2021-09-09 20:59 | ED.VIS.CHEST ---
[facility] <SELAM DACOSTA - Last Filed: 09/09/21 21:58> History of Present Illness Chief Complaint: Chest Pain Detail of Chief Complaint: Burning chest pain and high heart rate. Informant: patient Onset/Context/Timing Onset: Today Activity at onset: sudden and rest Quality: Positive for Burning Associated Symptoms: Positive for Diaphoresis and Lightheadedness Narrative Narrative: Patient presents secondary to sudden onset chest pain with elevated heart rate. Patient was resting on couch and suddenly felt burning chest pain epigastric, with radiation to left arm. Patient felt lightheaded and diaphoretic. Patient noted heart rate to be above 120, which she has history of and for which she is prescribed Metoprolol. However, patient had two of these episodes between [id number]. At this time, patient decided to come to ED for evaluations. At the time of exam, patient states pain is mostly resolved, aside from a burning lingering in the left parasternal area. Patient does report family history of cardiac disease for both parents. Father with MT and several stents in late 50's/early 60's. [facility] <SELAM DACOSTA - Last Filed: 09/09/21 21:58> [facility] Medical History (Updated 09/09/21 @ 21:[address] Marixa Farmer MD) Cervical spondylosis Fibromyalgia FSHD (facioscapulohumeral muscular dystrophy) Ruptured ectopic Home Medications metoprolol tartrate 25 mg PO BID 06/10/13 [History Last Taken 05/19/19 08:00] tizanidine 4 mg PO TID 03/16/19 [History Last Taken 05/18/19 21:00] buspirone 10 po.syringe PO BID 05/19/19 [History Last Taken 05/18/19] Allergy/AdvReac Type Severity Reaction Status Date / Time pineapple Allergy Intermediate hives, Verified 09/09/21 20:35 swelling amoxicillin Allergy Hives Verified 09/09/21 20:35 cefuroxime [From Ceftin] Allergy Hives Verified 09/09/21 20:35 ciprofloxacin [From Cipro] Allergy Hives Verified 09/09/21 20:35 medroxyprogesterone acetate Allergy Anaphylaxis Verified 09/09/21 20:35 [From Depo-Provera] hydromorphone HCl AdvReac Other Verified 09/09/21 20:35 [From Dilaudid] morphine AdvReac Other Verified 09/09/21 20:35 Sulfa (Sulfonamide AdvReac Rash Verified 09/09/21 20:35 Antibiotics) LORBID Allergy Abd Uncoded 09/09/21 20:35 cramps/diarrhea Family History Father Diabetes Hypertension Myocardial infarction End stage renal disease Mother Diabetes Hypertension Surgical History History of cholecystectomy Social History household members: significant other and children housing: house Smoking Status: Current every day smoker tobacco type: cigarettes and e-cigarettes alcohol intake: never do you feel safe at home: Yes ROS <SELAM DACOSTA - Last Filed: 09/09/21 21:58> ROS ED Constitutional Constitutional ED: Reports sweats; Denies chills or fever(s) Eyes Eyes: Denies blurry vision or change in vision ENT ENT ED: Denies ear pain or sore throat Cardiovascular Cardiovascular: Reports as per HPI, chest pain and racing heartbeat Respiratory/Chest Respiratory/Chest: Denies cough or dyspnea Gastrointestinal Gastrointestinal: Reports nausea; Denies abdominal pain or vomiting Genitourinary Genitourinary ED: Denies dysuria Musculoskeletal Musculoskeletal: Denies myalgias Integumentary Denies rash Neurologic Neurologic: Denies headache(s) or weakness Psychiatric Psychiatric: Reports anxiety; Denies depression Endocrine Endocrinology: Denies polydipsia or polyuria Hematologic/Lymphatic Hematologic/Lymphatic: Denies easy bleeding or easy bruising EXAM <SELAM DACOSTA - Last Filed: 09/09/21 21:58> Physical Exam Const Vital Signs: 09/09/21 20:33 09/09/21 21:59 Temperature 97.6 F L Temperature Source Temporal Pulse Rate 95 63 Respiratory Rate 18 15 Blood Pressure 159/97 H 105/66 Blood Pressure Mean 117 Pulse Ox 96 99 Oxygen Delivery Method Room Air Positive well nourished and well developed General Appearance ED: well developed HEENT normocephalic and atraumatic Eyes PERRL and EOMs intact bilaterally Neck supple Chest Wall inspection of chest normal Chest Narrative: Tenderness on palpation to sternal area and movement of left arm. Chest: tenderness Resp normal respiratory effort and clear to auscultation bilaterally Cardio regular rate and regular rhythm Peripheral Pulses: pulses 2+ throughout GI normal to inspection, nondistended, normoactive bowel sounds Extremity normal to inspection, no calf tenderness and no pedal edema General Extremety ED: Negative for edema General Extremity: Negative for edema Neuro oriented x3 Sensorium / Orientation: awake and alert Psych mental status grossly normal Skin no rashes or lesions noted <Dr. Marixa Farmer MD - Last Filed: 09/10/21 00:29> Physical Exam Const Vital Signs: 09/09/21 20:33 09/09/21 21:59 Temperature 97.6 F L Temperature Source Temporal Pulse Rate 95 63 Respiratory Rate 18 15 Blood Pressure 159/97 H 105/66 Blood Pressure Mean 117 Pulse Ox 96 99 Oxygen Delivery Method Room Air MDM <SELAM DACOSTA - Last Filed: 09/09/21 21:58> MDM MDM Narrative Medical decision making narrative: Patient placed on equipment monitor phototypesetting. EKG, CBC, BMP, Troponin, and chest xray obtained. Lab Data Labs: Laboratory Results - last 24 hr 09/09/21 09/09/21 21:00 21:00 WBC 8.7 RBC 4.03 L Hgb 12.1 Hct 36.2 L MCV 89.8 MCH 30.0 MCHC 33.4 RDW Std Deviation 46.0 H RDW Coeff of Kena 14.0 Plt Count 252 MPV 10.5 Immature Gran % (Auto) 0.300 Neut % (Auto) 67.4 Lymph % (Auto) 24.6 Alcorn % (Auto) 5.9 Eos % (Auto) 1.3 Baso % (Auto) 0.5 Absolute Neuts (auto) 5.9 Absolute Lymphs (auto) 2.14 Nucleated RBC % 0 Sodium 140 Potassium 3.5 Chloride 108 H Carbon Dioxide 27.0 Anion Gap 5 BUN 14 Creatinine 0.63 Estim Creat Clear Calc 98.40 Est GFR (MDRD) Af Amer 132 Est GFR (MDRD) Non-Af 109 BUN/Creatinine Ratio 22.3 H Glucose 145 H Calcium 8.7 Troponin I High Sens 6 Radiography Diagnostic Testing: Clinical Impression(s) from Imaging Studies Chest X-Ray 09/09/21 21:10 IMPRESSION: Normal x-ray examination of the chest. Electronically Signed: Joseph Still DO at 23:53 EST , EKG Initial EKG: Interpretation: Sinus Rhythm (Rate of 65 with normal intervals. ) and No Acute Injury Pattern Treatment and Re-Evaluation Comments:: Lab work unremarkable. Chest xray per my interpretation reveals no focal infiltrate. Radiologist reading reviewed and agrees. Results reviewed with patient. Patient given return instructions and will follow-up with primary doctor as needed. <Dr. Marixa Farmer MD - Last Filed: 09/10/21 00:29> [facility] Lab Data Labs: Laboratory Results - last 24 hr 09/09/21 09/09/21 21:00 21:00 WBC 8.7 RBC 4.03 L Hgb 12.1 Hct 36.2 L MCV 89.8 MCH 30.0 MCHC 33.4 RDW Std Deviation 46.0 H RDW Coeff of Kena 14.0 Plt Count 252 MPV 10.5 Immature Gran % (Auto) 0.300 Neut % (Auto) 67.4 Lymph % (Auto) 24.6 Alcorn % (Auto) 5.9 Eos % (Auto) 1.3 Baso % (Auto) 0.5 Absolute Neuts (auto) 5.9 Absolute Lymphs (auto) 2.14 Nucleated RBC % 0 Sodium 140 Potassium 3.5 Chloride 108 H Carbon Dioxide 27.0 Anion Gap 5 BUN 14 Creatinine 0.63 Estim Creat Clear Calc 98.40 Est GFR (MDRD) Af Amer 132 Est GFR (MDRD) Non-Af 109 BUN/Creatinine Ratio 22.3 H Glucose 145 H Calcium 8.7 Troponin I High Sens 6 Radiography Diagnostic Testing: Clinical Impression(s) from Imaging Studies Chest X-Ray 09/09/21 21:10 IMPRESSION: Normal x-ray examination of the chest. Electronically Signed: Joseph Still DO at 23:53 EST , Treatment and Re-Evaluation Comments:: Patient seen and evaluated with FAMILY PRACTICE DOCTOR student. Chart and documentation reviewed by myself and endorsed. Patient presents with episode of chest pressure with radiation to the left arm along with high heart rate between 120 and 140. Patient states she has had similar episodes previously with anxiety attacks. She tried her buspirone without improvement. She did take a dose of her metoprolol this evening as well. Arrival to the emergency room pain is significantly improved. Heart rate is in the 70s at the time of my evaluation. Patient sitting upright in bed no acute distress. Head neck examination unremarkable. Heart is regular rate and rhythm. Lung sounds are clear. She does have reproducible chest wall tenderness along the left mid to lower sternal border. Abdomen soft nontender. Lower extreme examination shows no significant calf tenderness or edema. EKG reveals no acute ischemia. Chest x-ray per my interpretation is unremarkable. Lab work normal including a negative troponin. Patient had no further symptoms while here in the emergency room. She is reassured with the work-up and will follow up with her primary care physician as needed. Discharge Plan Triage Chief Complaint: Chest Pain ED Provider: Marixa Farmer Dx/Rx/DC Orders Clinical Impression: Chest pain, Anxiety Instructions: ED Anxiety Reaction, ED Chest Pain, Noncardiac Prescriptions: No Action metoprolol tartrate 25 MG tablet 25 mg PO BID RF: 0 tizanidine 4 MG tablet 4 mg PO TID RF: 0 buspirone 10 MG tablet 10 po.syringe PO BID RF: 0 Primary Care Provider: Joe Darnell Referrals: Joe Darnell DO [Primary Care Provider] - 1-2 Weeks Disposition Disposition: Home, Self Care Discharge Date/Time: 09/09/21 21:59
--- NOTE | 2021-09-09 21:10 | RAD_ITS ---
STUDY: X-RAY CHEST REASON FOR EXAM: Female, 45 years old. Chest pain TECHNIQUE: Frontal and lateral views COMPARISON: 05/19/2019 FINDINGS: The lungs are clear and expanded. There is no demonstrated pleural abnormality. Normal size heart. Normal mediastinum and abhilash. Normal visualized pulmonary arteries. Normal visualized aortic arch and descending thoracic aorta. Normal visualized thoracic spine. Normal visualized ribs, clavicles, and shoulders. There is no demonstrated abnormality of the visualized soft tissue structures of the upper abdomen. RAD/Chest PA and Lateral IMPRESSION: Normal x-ray examination of the chest. Electronically Signed: Joseph Still DO at 23:53 EST Reading Location ID and State: [facility] / [place] Tel [phone], Service support ,
[2021-09-09 21:15] LABS: Absolute Lymphocyte Count 2.14 X10^3/uL (0.83-4.51); Absolute Neutrophil Count 5.9 X10^3/uL (2.0-7.7); Basophil# 0.04 X10^3/uL; Basophil% 0.5 % (0-1); Eosinophil# 0.11 X10^3/uL; Eosinophils% 1.3 % (0-5); Hematocrit 36.2 % (37-47); Hemoglobin 12.1 g/dL (12.0-15.0); Lymphocyte # 2.14 X10^3/ul (0.83-4.51); Lymphocyte % 24.6 % (19-41); Mean Corp Hgb Conc 33.4 g/dL (32-36); Mean Corpuscular Volume 89.8 fL (81-99); Mean Platelet Vol. 10.5 fl (6.2-12.0); Monocyte# 0.51 X10^3/uL; Monocyte% 5.9 % (0-10); NRBC Flagged by Analyzer 0 % (0-5); Neutrophil # 5.87 X10^3/uL (2.7-7.7); Neutrophil % 67.4 % (47-70); Platelet Count 252 K/mm3 (150-450); Red Blood Count 4.03 M/mm3 (4.2-5.4); White Blood Count 8.7 K/mm3 (4.4-11.0)
[2021-09-09 21:28] LABS: Anion Gap 5 (5-15); BUN 14 mg/dL (7-18); BUN/Creat Ratio 22.3 RATIO (10-20); Calcium,Total 8.7 mg/dL (8.5-10.1); Chloride 108 mmol/L (98-107); Creatinine, Serum 0.63 mg/dL (0.55-1.02); EST Glomerular Filtration Rate 109 mL/min (>60); Est Glom Filt Rate - Afr Amer 132 mL/min (>60); Glucose 145 mg/dL (74-106); Potassium 3.5 mmol/L (3.5-5.1); Sodium Level 140 mmol/L (136-145); Troponin-I HS 6 pg/mL (3.0-54.0)
[2021-09-09 21:59] VITALS: BP 105/66; PULSE 63; RESP 15; O2SAT 99
== END 2021-09-09 21:59 | disposition home or self-care (01) ==
PROVIDERS: Emergency Provider Emergency Medicine; PCP Family Medicine; Visit Provider Emergency Medicine
DX: R07.9 Chest pain, unspecified (principal); F41.9 Anxiety disorder, unspecified; R42 Dizziness and giddiness; R00.0 Tachycardia, unspecified; M79.7 Fibromyalgia; F17.210 Nicotine dependence, cigarettes, uncomplicated; Z79.899 Other long term (current) drug therapy
CPT/HCPCS: 71046; 80048; 84484; 85025; 93005; 99283; A4216

== ENCOUNTER 2021-12-07 22:43 | Emergency (ER) | payer BC, MEDICAID, SELFPAY ==
[2021-12-07 22:44] VITALS: BP 205/108; PULSE 60; RESP 15; TEMP 36.2; O2SAT 97; BMI 28.8
--- NOTE | 2021-12-07 23:25 | EKG12_ITS ---
Test Reason : CP Blood Pressure : / mmHG Vent. Rate : 064 BPM Atrial Rate : 064 BPM P-R Int : 136 ms QRS Dur : 074 ms QT Int : 402 ms P-R-T Axes : 022 084 037 degrees QTc Int : 414 ms Normal sinus rhythm Normal ECG Confirmed by FAROOQ RUTHERFORD, KIRSTEN ([id number]), deputy editor in chief MARGOT ASCENCIO ([id number]) on 12/10/2021 10:08:41 A M Referred By: RAMIN Confirmed By:TIO TRIVEDI MD
--- NOTE | 2021-12-07 23:30 | EDS_ITS ---
HPI History of Present Illness Chief Complaint: Chest Pain Informant: patient Onset/Context/Timing Onset: Today and Hours Activity at onset: gradual Timing: Continuous Quality: Positive for Pain and Sharp Location: Right Parasternal and Left Parasternal Current Severity: Mild Maximum Severity: Mild Worsened By: Nothing Relieved By: Nothing Associated Symptoms: Negative for Nausea, Vomiting, Diaphoresis, Dyspnea, Cough, Fever, Lightheadedness, Acid Reflux and Palpitations Narrative Narrative: 46-year-old female history of anxiety, muscular dystrophy, fibromyalgia and at times tachycardia. States that tonight around 930 about home watching TV had some chest discomfort and tingling in her left arm and left leg. Began around 930. She said she was at rest. She had a prior history of something similar that they attributed to anxiety. She denies any history of cardiac disease or exertional dyspnea nor any exertional chest pain. No history of DVT or PE or risk factors. Prior Similar Symptoms: Yes Recent Illness/Hospitalization: No CVD Risk Factors: Positive for Smoking; Negative for Hypertension, Diabetes, Hypercholesterolemia and Family History 1' </=55 PE Risk Factors: Negative for Recent Travel/Surgery, Recent Immobilization, Prior DVT or PE, Cancer and OCP + Smoking + >/=35 TAD Risk Factors: Negative for Marfan's Syndrome [facility] Medical History (Updated 12/08/21 @ 00:[address] Steven Sibley MD) Cervical spondylosis Fibromyalgia FSHD (facioscapulohumeral muscular dystrophy) Ruptured ectopic Home Medications metoprolol tartrate 25 mg PO BID 06/10/13 [History Last Taken 12/07/21] tizanidine 4 mg PO TID 03/16/19 [History Last Taken 12/07/21] buspirone 10 mg PO BID 05/19/19 [History Last Taken 12/07/21] Allergy/AdvReac Type Severity Reaction Status Date / Time pineapple Allergy Intermediate hives, Verified 12/07/21 22:45 swelling amoxicillin Allergy Hives Verified 12/07/21 22:45 cefuroxime [From Ceftin] Allergy Hives Verified 12/07/21 22:45 ciprofloxacin [From Cipro] Allergy Hives Verified 12/07/21 22:45 medroxyprogesterone acetate Allergy Anaphylaxis Verified 12/07/21 22:45 [From Depo-Provera] hydromorphone HCl AdvReac Other Verified 12/07/21 22:45 [From Dilaudid] morphine AdvReac Other Verified 12/07/21 22:45 Sulfa (Sulfonamide AdvReac Rash Verified 12/07/21 22:45 Antibiotics) LORBID Allergy Abd Uncoded 12/07/21 22:45 cramps/diarrhea Family History Father Diabetes Hypertension Myocardial infarction End stage renal disease Mother Diabetes Hypertension Surgical History History of cholecystectomy Social History household members: significant other and children housing: house Smoking Status: Current every day smoker tobacco type: e-cigarettes alcohol intake: never do you feel safe at home: Yes ROS ROS ED ROS Narrative Chest discomfort. Tingling. Review of Systems ROS Unobtainable: Denies due to encephalopathy Constitutional Constitutional ED: Denies fever(s) or subjective Eyes Eyes: Denies none ENT ENT ED: Denies ear pain Cardiovascular Cardiovascular: Reports as per HPI, chest pain and racing heartbeat; Denies palpitations Respiratory/Chest Respiratory/Chest: Denies cough or dyspnea Gastrointestinal Gastrointestinal: Denies abdominal pain, diarrhea, nausea or vomiting Genitourinary Genitourinary ED: Denies dysuria Musculoskeletal Musculoskeletal: Denies myalgias Integumentary Denies rash Neurologic Neurologic: Denies headache(s) Psychiatric Psychiatric: Denies depression Endocrine Endocrinology: Denies polyuria Hematologic/Lymphatic Hematologic/Lymphatic: Denies easy bruising Allergic/Immunologic Allergic/Immunologic ED: Denies urticaria EXAM Physical Exam Narrative Exam Narrative: Middle-aged female no acute distress. Initial blood pressure elevated 205/108. Pulse ox 97% on room air. Does not look septic or toxic. Left H EENT exam unremarkable. Neck nontender. Lungs clear to auscultation bilaterally. Heart regular rate and rhythm no murmur. Chest wall nontender. Abdomen soft nontender. Moving all 4 extremities. Equal symmetrical radial pulses. Calves are nontender without edema or cords. Normal strength and sensation in both upper and lower extremities. Fingertip to nose dorsi and plantar flexion are intact. Back nontender. Neurologic exam normal. NIH score of 0. Const Vital Signs: 12/07/21 22:44 12/07/21 22:49 12/07/21 23:35 Temperature 97.2 F L Temperature Source Temporal Pulse Rate 60 Respiratory Rate 15 Respiratory Effort Normal Non-Labored Blood Pressure 205/108 H Blood Pressure Mean 140 Pulse Ox 97 Oxygen Delivery Method Room Air Room Air Positive well nourished and well developed; Negative for obese, cachectic, contractures or unkempt General Appearance ED: well developed and NAD; Negative for unkempt, cachectic, contractures or pallor Nutritional Appearance: Negative for cachectic or obese HEENT Reports moist mucous membranes normocephalic and atraumatic; Negative for trauma or tenderness Eyes PERRL General Eye ED: Negative for pale conjunctiva or scleral icterus Neck no lymphadenopathy, supple and no JVD General: Negative for tenderness Chest Wall inspection of chest normal and palpation of chest normal Chest: Negative for tenderness Resp normal respiratory effort and clear to auscultation bilaterally Effort and Inspection: respiratory distress Auscultation: Negative for rales, rhonchi or wheezes Cardio regular rate, regular rhythm, S1 normal heart sound, S2 normal heart sound and no murmurs Rate: Negative for bradycardia or tachycardic Rhythm: Negative for abnormal rhythm GI normal to inspection, nondistended, normoactive bowel sounds, soft to palpation, non-tender, non-distended and no masses; Negative for hepatosplenomegaly Auscultation: Negative for hyperactive bowel sounds Palpation: Negative for splenomegaly or mass Back/Spine no CVA tenderness and no thoracic nor lumbar tenderness General Back: Negative for CVA tenderness Extremity normal to inspection General Extremety ED: Negative for edema or tenderness General Extremity: Negative for edema Neuro oriented x3 Sensorium / Orientation: awake, alert, oriented to person, oriented to place and oriented to time Motor Exam: strength 5/5 throughout Psych mental status grossly normal Appearance: Negative for unkempt Attitude: No agitated Mood & Affect: Negative for depressed, anxious or tearful Skin no rashes or lesions noted and no wounds General Skin Exam: Negative for jaundice or pallor Trauma: Negative for abrasion Heart Score History: Slightly/Non-Suspicious ECG: Normal Age: >45 - <65 years Risk Factors: No Risk Factors Troponin: </= Normal Limit Score: 1 MDM MDM MDM Narrative Medical decision making narrative: 46-year-old female with atypical chest pain and atypical arm and leg tingling. Exam benign. She will undergo cardiac work- up. My clinical suspicion is low. Repeat exam patient doing well at 12:47 AM. Exam normal. She will be discharged home. Lab Data Attestation: I reviewed the patient's lab results. Lab results narrative: CBC normal. White count of 10. H&H 13 and 40. Electrolytes unremarkable gap of 8 normal BUN and creatinine. Glucose 101 troponin 3. Chest x-ray normal. Labs: Laboratory Results - last 24 hr 12/07/21 12/07/21 23:03 23:03 WBC 10.8 RBC 4.50 Hgb 13.8 Hct 40.7 MCV 90.4 MCH 30.7 MCHC 33.9 RDW Std Deviation 48.3 H RDW Coeff of Kena 14.6 Plt Count 274 MPV 11.1 Immature Gran % (Auto) 1.300 H Neut % (Auto) 55.8 Lymph % (Auto) 33.0 Towner % (Auto) 7.9 Eos % (Auto) 1.4 Baso % (Auto) 0.6 Absolute Neuts (auto) 6.0 Absolute Lymphs (auto) 3.57 Nucleated RBC % 0 Sodium 137 Potassium 3.9 Chloride 104 Carbon Dioxide 25.0 Anion Gap 8 BUN 8 Creatinine 0.72 Estim Creat Clear Calc 85.20 Est GFR (MDRD) Af Amer 112 Est GFR (MDRD) Non-Af 93 BUN/Creatinine Ratio 11.1 Glucose 101 Calcium 9.6 Troponin I High Sens 3 Radiography Chest X-Ray - ED: 1 View, Read by ED Physician, Read by Radiologist, Heart, Lungs, Mediastinum, Bony Structures, No Acute Disease and Chronic Changes Diagnostic Testing: Clinical Impression(s) from Imaging Studies Chest X-Ray 12/07/21 23:31 IMPRESSION: No radiographic evidence of acute cardiopulmonary disease. Electronically Signed: Kamaljit Burch MD at 23:57 EDT , Chest x-ray portable, single view, interpreted by myself and radiologist shows no acute abnormality. Normal cardiac silhouette mediastinum. Rhythm Strip Rhythm Strip: Sinus Rhythm Rate: 64 Ectopy: None EKG Initial EKG: Attestation: I personally reviewed and interpreted this EKG as follows: Interpretation: Sinus Rhythm and No Acute Injury Pattern Comments: Normal sinus rhythm rate of 64 no acute signs of ND or ischemia. Normal EKG. Discharge Plan Triage Chief Complaint: Chest Pain ED Provider: Steven Sibley Dx/Rx/DC Orders Clinical Impression: Atypical chest pain, History of fibromyalgia, History of anxiety Instructions: ED Anxiety Reaction, ED Chest Pain, Uncertain Cause Prescriptions: No Action metoprolol tartrate 25 MG tablet 25 mg PO BID RF: 0 tizanidine 4 MG tablet 4 mg PO TID RF: 0 buspirone 10 MG tablet 10 mg PO BID RF: 0 Primary Care Provider: Joe Darnell Referrals: Joe Darnell DO [Primary Care Provider] - 1 Week if not improving Activity Restrictions/Additional Instructions: All your test, EKG and chest x-ray were all normal or negative. Follow-up with primary care physician. Disposition Disposition: Home, Self Care
--- NOTE | 2021-12-07 23:31 | RAD_ITS ---
EXAM: XR CHEST, 1 VIEW CLINICAL INDICATION: chest pain TECHNIQUE: Frontal view of the chest. This report was created using [employer]pro[employer] report generation technology. COMPARISON: 09/09/2021. FINDINGS: LUNGS AND PLEURAL SPACES: Unremarkable. No consolidation or edema. No pneumothorax. No effusion. HEART: Unremarkable. Cardiac silhouette not enlarged. MEDIASTINUM: Central airways and mediastinal contour are unremarkable. BONES/JOINTS: Unremarkable. SOFT TISSUES: Unremarkable. RAD/Chest 1 View (Portable) IMPRESSION: No radiographic evidence of acute cardiopulmonary disease. Electronically Signed: Kamaljit Burch MD at 23:57 EDT ,
[2021-12-07 23:58] LABS: Absolute Lymphocyte Count 3.57 X10^3/uL (0.83-4.51); Anion Gap 8 (5-15); BUN 8 mg/dL (7-18); BUN/Creat Ratio 11.1 RATIO (10-20); Basophil# 0.06 X10^3/uL; Basophil% 0.6 % (0-1); Calcium,Total 9.6 mg/dL (8.5-10.1); Chloride 104 mmol/L (98-107); Creatinine, Serum 0.72 mg/dL (0.55-1.02); EST Glomerular Filtration Rate 93 mL/min (>60); Eosinophil# 0.15 X10^3/uL; Eosinophils% 1.4 % (0-5); Est Glom Filt Rate - Afr Amer 112 mL/min (>60); Glucose 101 mg/dL (74-106); Hematocrit 40.7 % (37-47); Hemoglobin 13.8 g/dL (12.0-15.0); Lymphocyte # 3.57 X10^3/ul (0.83-4.51); Mean Corp Hgb Conc 33.9 g/dL (32-36); Mean Corpuscular Hgb 30.7 pg (27.0-32.0); Mean Corpuscular Volume 90.4 fL (81-99); Mean Platelet Vol. 11.1 fl (6.2-12.0); Monocyte# 0.85 X10^3/uL; Monocyte% 7.9 % (0-10); NRBC Flagged by Analyzer 0 % (0-5); Neutrophil # 6.04 X10^3/uL (2.7-7.7); Neutrophil % 55.8 % (47-70); Platelet Count 274 K/mm3 (150-450); Potassium 3.9 mmol/L (3.5-5.1); RBC Distribution Width CV 14.6 % (11.6-14.6); RBC Distribution Width SD 48.3 fl (35.1-43.9); Sodium Level 137 mmol/L (136-145); Troponin-I HS (w/2H Reflex) 3 pg/mL (3.0-54.0); White Blood Count 10.8 K/mm3 (4.4-11.0)
--- NOTE | 2021-12-08 00:48 | NURSING ---
Per Dr Sibley, patient does not need second troponin drawn.
[2021-12-08 00:52] VITALS: BP 159/102; PULSE 66; RESP 14; TEMP 36.6
[2021-12-08 01:32] LABS: Reflex Troponin-HS? (from REC) Y
== END 2021-12-08 00:54 | disposition home or self-care (01) ==
PROVIDERS: Emergency Provider Emergency Medicine; PCP Family Medicine; Visit Provider Emergency Medicine
DX: R07.89 Other chest pain (principal); G71.02 Facioscapulohumeral muscular dystrophy; M79.7 Fibromyalgia; F41.9 Anxiety disorder, unspecified; F17.290 Nicotine dependence, other tobacco product, uncomplicated; Z79.899 Other long term (current) drug therapy
CPT/HCPCS: 71045; 80048; 84484; 85025; 93005; 99284

== ENCOUNTER → 2023-04-28 | Outpatient (CLI) | payer OTHER, SELFPAY ==
[2023-04-28 10:58] LABS: Thyroid Stim Hormone (TSH) 3.56 uIU/mL (0.358-3.74)
== END | disposition home or self-care (01) ==
LOC: LAB 09:42
PROVIDERS: PCP Family Medicine; Referring Provider Internal Medicine Cardiovascular Disease; Visit Provider Internal Medicine Cardiovascular Disease
DX: R07.9 Chest pain, unspecified (principal); R00.2 Palpitations
CPT/HCPCS: 36415; 84443

== ENCOUNTER → 2023-05-20 | Outpatient (CLI) | payer OTHER, SELFPAY ==
--- NOTE | 2023-05-20 07:59 | ECHOD_ITS ---
Reason For Study: Chest Pain Procedure This was a 2D Doppler, Color Flow transthoracic echocardiogram. Patient unable to lay in left lateral position due to pain and trouble with her left shoulder and muscular dystrophy. Patient scanned supine for apical images. Exam performed in department. Left Ventricle Normal size and thickness. The left ventricular ejection fraction is 55 %. Normal diastololic function. Right Ventricle Normal right ventricle. Atria The left and right atria are normal. Mitral Valve Trivial mitral valve insufficiency. Tricuspid Valve Normal tricuspid valve. Aortic Valve Trisinus/trileaflet aortic valve. Pulmonic Valve The pulmonic valve is not well visualized. Great Vessels The aortic root is not well visualized. Pericardium/Pleural No pericardial effusion. MMode/2D Measurements & Calculations LVIDd: 4.3 cm IVSd: 0.96 cm Ao root diam: 2.9 cm LVIDs: 3.0 cm LVPWd: 0.72 cm LA dimension: 3.3 cm RVDd: 3.2 cm FS: 29.8 % LAV(MOD-bp): 38.2 ml LVAd ap4: 23.8 cm2 SV(MOD-sp4): 35.0 ml LAV(MOD-bp) Indexed: 21.0 ml/m2 LVLd ap4: 7.2 cm LAV(MOD-sp2): 33.1 ml EDV(MOD-sp4): 65.5 ml LAV(MOD-sp4): 43.0 ml EDV(sp4-el): 66.6 ml LVAs ap4: 14.8 cm2 LVLs ap4: 6.1 cm ESV(MOD-sp4): 30.5 ml ESV(sp4-el): 30.4 ml EF(MOD-sp4): 53.4 % EF(sp4-el): 54.4 % SV(sp4-el): 36.2 ml LA A4 area: 16.8 cm2 TAPSE: 2.3 cm Time Measurements MV dec time: 0.23 sec Doppler Measurements & Calculations MV E max gabino: 77.6 cm/sec Lat Peak E' Gabino: 14.3 cm/sec Med Peak E' Gabino: 15.2 cm/sec MV A max gabino: 61.5 cm/sec E/E' lat: 5.4 E/E' med: 5.1 MV E/A: 1.3 MV V2 max: 87.2 cm/sec MV P1/2t max gabino: 87.2 cm/sec Ao V2 max: 93.8 cm/sec MV max P.0 mmHg MV P1/2t: 80.1 msec Ao max P.5 mmHg MV V2 mean: 41.8 cm/sec Ao V2 mean: 60.4 cm/sec MV mean P.87 mmHg MV dec slope: 319.1 cm/sec2 Ao mean P.7 mmHg MV V2 VTI: 30.2 cm MVA(P1/2t): 2.7 cm2 Ao V2 VTI: 21.1 cm AV (velocity ratio): 0.91 LV V1 max: 93.2 cm/sec MR max gabino: 481.6 cm/sec PA V2 max: 87.1 cm/sec LV V1 max P.5 mmHg MR max P.8 mmHg PA V2 mean: 59.8 cm/sec LV V1 mean P.7 mmHg LV V1 mean: 60.3 cm/sec LV V1 VTI: 19.3 cm ECHO/Echo Complete Interpretation Summary The left ventricular ejection fraction is 55 %. Cannot rule out eccentric aortic regurgitation versus VSD. Recommend cardiac MR I for further evaluation. Technically difficult study because of patient's inability to lie in the left l ateral position. Ordering Physician: Chidi Curiel Referring Physician: Joe Darnell Performed By: Jay Ovalle, [facility]
--- NOTE | 2023-05-20 08:39 | BI_ITS ---
MAMMOGRAPHY - BILATERAL SCREENING REASON FOR EXAM: Female, 47 years old. Routine annual screening examination. PERTINENT HISTORY: Non-contributory. TECHNIQUE: Digital bilateral breast elizabeth (3D mammographic acquisition) in the CC and MLO projections. 2-D mediolateral oblique (MLO) and craniocaudad (CC) views of both breasts were obtained. CAD: Full Field Digital Mammography with Computer Added Detection was performed. COMPARISON: None. Baseline examination. FINDINGS: Breast Composition: The breasts are heterogeneously dense, which may obscure small masses. There are no dominant masses or suspicious calcifications. No other significant abnormalities are identified. BI/SCRN MAMM (CAD)W/ELIZABETH BILAT IMPRESSION: Negative screening mammogram. Yearly followup mammogram recommended. (A) ASSESSMENT CATEGORY: BIRADS Category 1: Negative. A letter regarding these results will be sent to the patient by the facility within 30 days. Approximately 10% of breast cancers are not detected by mammography. A normal mammogram should not delay biopsy of a clinically suspicious abnormality. [id number] Electronically Signed: Alejandro Bowers MD at 9:48 EDT ,
== END | disposition home or self-care (01) ==
PROVIDERS: PCP Family Medicine; Referring Provider Internal Medicine Cardiovascular Disease; Visit Provider Family Medicine
DX: R07.9 Chest pain, unspecified (principal); R00.2 Palpitations; Z12.31 Encounter for screening mammogram for malignant neoplasm of breast
CPT/HCPCS: 77063; 77067; 93306

== ENCOUNTER 2023-11-01 19:08 | Emergency (ER) | payer OTHER, SELFPAY ==
[2023-11-01 19:09] VITALS: BP 153/101; PULSE 70; RESP 18; TEMP 36.5; O2SAT 100
--- NOTE | 2023-11-01 19:19 | CT_ITS ---
STUDY: CT ABDOMEN AND PELVIS WITH CONTRAST REASON FOR EXAM: Female, 48 years old. LUQ abdominal pain RADIATION DOSAGE (If Supplied By Facility): CTDIvol = ( 14.13 ) mGy, DLP = ( 907.46 ) mGycm TECHNIQUE: Transaxial images were obtained from the dome of the diaphragm to the symphysis pubis without oral contrast. IV 100mL Isovue-370 was administered. Sagittal and coronal images were reconstructed. Individualized dose optimization techniques were used for this CT. COMPARISON: None. FINDINGS: The visualized lung bases are unremarkable. The visualized portions of the heart are within normal limits. Normal liver. There are surgical clips in the gallbladder fossa consistent with a prior cholecystectomy. Normal spleen. Normal pancreas. Normal bilateral adrenal glands. Normal right kidney. Normal left kidney. Normal visualized stomach. Normal small intestine. Normal colon. The appendix is visualized and appears normal. There is diffuse atherosclerotic calcification of the abdominal aorta, without a demonstrated aneurysm. Normal inferior vena cava. Normal retroperitoneum. Normal urinary bladder. Fatty atrophy of the abdominal wall muscles. Normal osseous structures. CT/Abdomen/Pelvis W IV Cont ONLY IMPRESSION: No acute inflammatory process or bowel obstruction. Electronically Signed: Pravin Oropeza MD (Brooks) at 20:55 EDT Reading Location ID and State: [facility] / [place] , Service support ,
--- NOTE | 2023-11-01 19:30 | EX.ED.DYSGE1 ---
HPI <ANA Smalls - Last Filed: 11/01/23 21:05> History of Present Illness Chief Complaint: Abd Pain Narrative Narrative: 48-year-old female with history of anxiety, depression, hypertension who presents to the emergency department complaints of left upper quadrant abdominal pain. Patient states she does drink alcohol however the last time she drank was last several to several months ago. Patient states that she was not doing anything when the pain started, patient denies any vomiting however does have nausea, normal bowel movements. She denies having pain like this before. She does have history of cholecystectomy. [facility] <ANA Smalls - Last Filed: 11/01/23 21:05> [facility] Medical History (Updated 11/01/23 @ 21:04 by ANA Smalls) Anemia Cervical spondylosis Chest pain Essential (primary) hypertension Fibromyalgia FSHD (facioscapulohumeral muscular dystrophy) History of anxiety History of fibromyalgia Intermittent palpitations Migraine Muscular dystrophy Palpitation Ruptured ectopic Home Medications buspirone 10 mg tablet 10 mg PO BID depression 05/19/19 [History Last Taken 12/07/21] losartan 25 mg tablet 25 mg PO DAILY 04/18/23 [History Last Taken Unknown] tizanidine 4 mg tablet 4 mg PO TID PRN muscle spasms 04/18/23 [History Last Taken Unknown] metoprolol tartrate 50 mg tablet 25 mg PO BID 04/28/23 [History Last Taken Unknown] dicyclomine 20 mg tablet 20 mg PO TID #20 tabs 11/01/23 [Rx Last Taken Unknown] omeprazole 40 mg capsule,delayed release 40 mg PO DAILY #30 caps 11/01/23 [Rx Last Taken Unknown] ondansetron 4 mg disintegrating tablet 4 mg PO Q8H PRN PRN Nausea #10 tabs 11/01/23 [Rx Last Taken Unknown] Allergy/AdvReac Type Severity Reaction Status Date / Time pineapple Allergy Intermediate hives, Verified 11/01/23 19:09 swelling amoxicillin Allergy Hives Verified 11/01/23 19:09 cefuroxime [From Ceftin] Allergy Hives Verified 11/01/23 19:09 ciprofloxacin [From Cipro] Allergy Hives Verified 11/01/23 19:09 medroxyprogesterone acetate Allergy Anaphylaxis Verified 11/01/23 19:09 [From Depo-Provera] Penicillins AdvReac Intermediate Rash Verified 11/01/23 19:09 hydromorphone HCl AdvReac Other Verified 11/01/23 19:09 [From Dilaudid] loracarbef [From Lorabid] AdvReac Abd Verified 11/01/23 19:09 cramps/diarrhea morphine AdvReac Other Verified 11/01/23 19:09 Sulfa (Sulfonamide AdvReac Rash Verified 11/01/23 19:09 Antibiotics) holter monitor patches AdvReac Intermediate Broke out Uncoded 05/12/23 15:55 in hives and blisters Family History Father Diabetes Hypertension Myocardial infarction End stage renal disease Kidney disease Heart disease CAD (coronary artery disease) Alcoholism Mother Diabetes Hypertension Anxiety Myocardial infarction CAD (coronary artery disease) Sister Kidney disease Hypertension Anxiety Surgical History History of cholecystectomy Social History (Updated 04/28/23 @ 09:04 by Socorro Berkowitz, RN) household members: significant other and children housing: house Smoking Status: Current every day smoker tobacco type: e-cigarettes alcohol intake: current alcohol intake frequency: a few times a month caffeine: Yes Type: carbonated beverages and tea Number of servings: 3 do you feel safe at home: Yes ROS <ANA Smalls - Last Filed: 11/01/23 21:05> ROS ED ROS Narrative Constitutional: Negative for fever, chills, weight loss, weakness Eyes: Negative for vision loss, vision change, double vision ENT: Negative for any sore throat, ear pain, congestion Cardiovascular: Negative for any chest pain, tightness, palpitations Respiratory: Negative for any cough, sputum production, hemoptysis, dyspnea, dyspnea on exertion, orthopnea Gastrointestinal: Negative for any vomiting, diarrhea, constipation, blood in stool, blood in vomit. Positive for left upper abdominal pain, nausea : Negative for any urinary frequency, dysuria, retention, blood in urine Muscle skeletal: Negative for any neck pain, back pain Neurological: Negative for any headache, syncope, dizziness Skin: Negative for any rashes, itching, abrasions, lacerations Psychiatric: Negative for any depression, anxiety, stress, suicidal ideation, homicidal ideation Hematologic: Negative for any excessive bruising, easy bleeding EXAM <ANA Smalls - Last Filed: 11/01/23 21:05> Physical Exam Narrative Exam Narrative: Vital signs reviewed. HEET: Head normocephalic atraumatic, TMs clear bilaterally. Posterior pharynx is clear, moist mucous membranes. Nares clear bilaterally. Neck: Supple with no lymphadenopathy or tenderness. No signs of meningismus. Cardiac: Regular rate and rhythm no murmurs gallops or rubs, equal peripheral pulses bilaterally. Respiratory: Lungs clear to auscultation bilaterally. No chest tenderness. Abdomen: Soft, nondistended. No abdominal bruit or pulsatile masses. No hepatosplenomegaly. Positive for left-sided abdominal pain worse on palpation Extremities: No peripheral edema, no signs of gross trauma or deformity. Active full range of motion of all extremities. Neuro: Cranial nerves II through XII intact, no focal neurological deficits. Skin: Clean dry and intact with no rash, purpura, petechiae, vesicles or pustules. Backs/flank: No CVA tenderness, no midline spinal tenderness, no deformity. Psych: Normal mood and affect. No SI, HI or acute psychosis. Const Vital Signs: 11/01/23 19:09 11/01/23 21:03 Temperature 97.7 F L Temperature Source Temporal Pulse Rate 70 74 Respiratory Rate 18 16 Blood Pressure 153/101 H 163/105 H Blood Pressure Mean 118 124 Pulse Ox 100 99 Oxygen Delivery Method Room Air Room Air <Joseph Orlando MD - Last Filed: 11/01/23 21:12> Physical Exam Const Vital Signs: 11/01/23 19:09 11/01/23 21:03 Temperature 97.7 F L Temperature Source Temporal Pulse Rate 70 74 Respiratory Rate 18 16 Blood Pressure 153/101 H 163/105 H Blood Pressure Mean 118 124 Pulse Ox 100 99 Oxygen Delivery Method Room Air Room Air MDM <ANA Smalls - Last Filed: 11/01/23 21:05> [facility] Lab Data Labs: Laboratory Results - last 24 hr 11/01/23 19:30 WBC 9.4 RBC 4.45 Hgb 13.3 Hct 41.0 MCV 92.1 MCH 29.9 MCHC 32.4 RDW Std Deviation 47.5 H RDW Coeff of Kena 14.1 Plt Count 257 MPV 10.3 Immature Gran % (Auto) 0.400 Neut % (Auto) 72.2 H Lymph % (Auto) 20.3 Ferry % (Auto) 6.2 Eos % (Auto) 0.5 Baso % (Auto) 0.4 Absolute Neuts (auto) 6.7 Absolute Lymphs (auto) 1.90 Nucleated RBC % 0 Sodium 138 Potassium 3.5 Chloride 107 Carbon Dioxide 24.0 Anion Gap 7 BUN 8 Creatinine 0.72 Est GFR (MDRD) Af Amer 113 Est GFR (MDRD) Non-Af 93 BUN/Creatinine Ratio 11.2 Glucose 104 Calcium 9.0 Total Bilirubin 0.80 AST 18 ALT 23 Alkaline Phosphatase 61 Total Protein 7.9 Albumin 4.1 Globulin 3.8 Albumin/Globulin Ratio 1.1 Lipase 20 Urine Color Yellow Urine Clarity Clear Urine pH 6.5 Ur Specific [place] 1.010 Urine Protein Negative Urine Glucose (UA) Normal Urine Ketones 15 H Urine Occult Blood Negative Urine Nitrite Negative Urine Bilirubin Negative Urine Urobilinogen Normal Ur Leukocyte Esterase Negative Urine RBC 0 SEEN Urine WBC 0 SEEN Ur Squamous Epith Cells 0-5 SEEN Urine Bacteria RARE Urine Mucus 0 SEEN Radiography Diagnostic Testing: Clinical Impression(s) from Imaging Studies Abdomen/Pelvis CT 11/01/23 19:19 IMPRESSION: No acute inflammatory process or bowel obstruction. Electronically Signed: Pravin Oropeza MD (Brooks) at 20:55 EDT Reading Location ID and State: [facility] / [place] , Service support , Treatment and Re-Evaluation :: Differential diagnosis includes however is not limited to: Acute pancreatitis, gastritis, diverticulitis obstruction Patient appears generally well, patient appears nontoxic, vital signs are stable. Presenting to the emerged part with left upper abdominal pain that started today. Patient will receive a full workup including CBC CMP lipase. CT scan of the abdomen pelvis IV contrast will be ordered. Patient be given IV Zofran IV fluids. Patient was given a GI cocktail with minimal relief. Patient's laboratory values show a normal CBC, patient's chemistries were unremarkable, lipase was negative at 20. CT scan of the abdomen pelvis with IV contrast showed no acute inflammatory process or bowel obstruction. Patient's urinalysis was negative for infection. At this time, patient be diagnosed abdominal pain uncertain etiology. Patient be given Bentyl, nausea medicine for home. I also try the patient on omeprazole. She instructed follow-up outpatient. She instructed to reduce her fried fatty foods, and to advance her diet as tolerated. She was given return precaution. All questions answered, patient stable for discharge. <Joseph Orlando MD - Last Filed: 11/01/23 21:12> [facility] Narrative Medical decision making narrative: Dr. Orlando: I have personally performed a face to face assessment of the patient and have reviewed the [facility] Note. I performed a substantive portion of the visit including all aspects of the following. My tovar findings include: History is left upper quadrant abdominal pain starting today. Exam is afebrile. Vital signs noted. Regular rate and rhythm. Lungs clear to auscultation bilaterally. Abdomen soft with mild tenderness in left upper quadrant, no rebound or guarding. Positive bowel sounds. Medical Decision Making: Check labs. Check UA. Check CT. Given her negative workup, I feel she can be discharged to follow-up with her primary care provider. I do not feel antibiotics are indicated. Disposition is discharged home in stable condition. Other additions or changes: [None] History & Record Review Discussion w/independent historian: Patient Lab Data Attestation: I reviewed the patient's lab results. Labs: Laboratory Results - last 24 hr 11/01/23 19:30 WBC 9.4 RBC 4.45 Hgb 13.3 Hct 41.0 MCV 92.1 MCH 29.9 MCHC 32.4 RDW Std Deviation 47.5 H RDW Coeff of Kena 14.1 Plt Count 257 MPV 10.3 Immature Gran % (Auto) 0.400 Neut % (Auto) 72.2 H Lymph % (Auto) 20.3 Ferry % (Auto) 6.2 Eos % (Auto) 0.5 Baso % (Auto) 0.4 Absolute Neuts (auto) 6.7 Absolute Lymphs (auto) 1.90 Nucleated RBC % 0 Sodium 138 Potassium 3.5 Chloride 107 Carbon Dioxide 24.0 Anion Gap 7 BUN 8 Creatinine 0.72 Est GFR (MDRD) Af Amer 113 Est GFR (MDRD) Non-Af 93 BUN/Creatinine Ratio 11.2 Glucose 104 Calcium 9.0 Total Bilirubin 0.80 AST 18 ALT 23 Alkaline Phosphatase 61 Total Protein 7.9 Albumin 4.1 Globulin 3.8 Albumin/Globulin Ratio 1.1 Lipase 20 Urine Color Yellow Urine Clarity Clear Urine pH 6.5 Ur Specific [place] 1.010 Urine Protein Negative Urine Glucose (UA) Normal Urine Ketones 15 H Urine Occult Blood Negative Urine Nitrite Negative Urine Bilirubin Negative Urine Urobilinogen Normal Ur Leukocyte Esterase Negative Urine RBC 0 SEEN Urine WBC 0 SEEN Ur Squamous Epith Cells 0-5 SEEN Urine Bacteria RARE Urine Mucus 0 SEEN Radiography Diagnostic Testing: Clinical Impression(s) from Imaging Studies Abdomen/Pelvis CT 11/01/23 19:19 IMPRESSION: No acute inflammatory process or bowel obstruction. Electronically Signed: Pravin Oropeza MD (Brooks) at 20:55 EDT , Discharge Plan Triage Chief Complaint: Abd Pain ED Midlevel Provider: Ankur Mane ED Provider: Joseph Orlando Dx/Rx/DC Orders Clinical Impression: Abdominal pain Instructions: Abdominal Pain Prescriptions: New dicyclomine 20 mg tablet 20 mg PO TID Qty: 20 0RF omeprazole 40 mg capsule,delayed release(DR/EC) 40 mg PO DAILY Qty: 30 0RF ondansetron 4 mg tablet,disintegrating 4 mg PO Q8H PRN PRN (Reason: Nausea) Qty: 10 0RF No Action losartan 25 mg tablet 25 mg PO DAILY metoprolol tartrate 50 mg tablet 25 mg PO BID tizanidine 4 mg tablet 4 mg PO TID PRN (Reason: muscle spasms) Patient Comments: TAKE ONE TABLET BY MOUTH THREE TIMES DAILY NEEDED buspirone 10 MG tablet 10 mg PO BID Patient Comments: TAKE 1 TABLET BY MOUTH TWICE DAILY Primary Care Provider: Joe Darnell Referrals: Joe Darnell DO [Primary Care Provider] - Activity Restrictions/Additional Instructions: Please follow-up outpatient. Disposition Disposition: Home, Self Care
[2023-11-01] MEDS: Ondansetron 4 MG/2 ML Vial IV (19:35)
[2023-11-01] MEDS: 0.9% Normal Saline (1000mL) 1,000 ML 1000 ML IV (19:35)
[2023-11-01 19:36] LABS: Absolute Neutrophil Count 6.7 X10^3/uL (2.0-7.7); Basophil# 0.04 X10^3/uL; Basophil% 0.4 % (0-1); Eosinophil# 0.05 X10^3/uL; Eosinophils% 0.5 % (0-5); Hemoglobin 13.3 g/dL (12.0-15.0); Lymphocyte % 20.3 % (19-41); Mean Corp Hgb Conc 32.4 g/dL (32-36); Mean Corpuscular Hgb 29.9 pg (27.0-32.0); Mean Corpuscular Volume 92.1 fL (81-99); Mean Platelet Vol. 10.3 fl (6.2-12.0); Monocyte# 0.58 X10^3/uL; Monocyte% 6.2 % (0-10); NRBC Flagged by Analyzer 0 % (0-5); Neutrophil # 6.74 X10^3/uL (2.7-7.7); Neutrophil % 72.2 % (47-70); Platelet Count 257 K/mm3 (150-450); RBC Distribution Width CV 14.1 % (11.6-14.6); RBC Distribution Width SD 47.5 fl (35.1-43.9); Red Blood Count 4.45 M/mm3 (4.2-5.4); White Blood Count 9.4 K/mm3 (4.4-11.0)
[2023-11-01 19:40] LABS: Mucous, Urine 0 SEEN /hpf (<or=2+); Red Blood Cells-Urine 0 SEEN /hpf (0-5); White Blood Cells 0 SEEN /hpf (0-5)
[2023-11-01 19:45] LABS: Color, Urine Yellow (Yellow); Glucose, Dipstick Normal (Normal); Ketone-Dipstick 15 mg/dl (Negative); Leukocyte Esterase-Dipstick Negative /ul (Negative); Nitrite-Dipstick Negative (Negative); Occult Blood-Urine Negative /ul (Negative); Protein-Dipstick Negative (Negative); Urine Bilirubin Dipstick Negative (Negative); Urine Clarity Clear (Clear); Urine Urobilinogen Normal (Normal); Urine pH 6.5 (5.0 - 8.0)
[2023-11-01 19:51] LABS: Bacteria RARE /hpf (None Seen); Squamous Epithelial Cells - UA 0-5 SEEN /hpf (5-10)
[2023-11-01 19:58] LABS: ALB/GLOB Ratio 1.1 RATIO (0.9-2.4); AST(SGOT) 18 U/L (15-37); Alanine Aminotransfer ALT/SGPT 23 U/L (13-56); Albumin, Serum 4.1 g/dL (3.2-5.0); Alkaline Phosphatase 61 U/L (45-117); Anion Gap 7 (5-15); BUN 8 mg/dL (7-18); BUN/Creat Ratio 11.2 RATIO (10-20); Chloride 107 mmol/L (98-107); Creatinine, Serum 0.72 mg/dL (0.55-1.02); EST Glomerular Filtration Rate 93 mL/min (>60); Est Glom Filt Rate - Afr Amer 113 mL/min (>60); Globulin 3.8 g/dL (2.2-4.2); Glucose 104 mg/dL (74-106); Lipase 20 U/L (13-75); Potassium 3.5 mmol/L (3.5-5.1); Protein, Total 7.9 g/dL (6.4-8.2); Sodium Level 138 mmol/L (136-145)
[2023-11-01] MEDS: Mag Hydrox/Al Hydrox/Simeth 30 ML UDC PO (20:16)
[2023-11-01 21:03] VITALS: BP 163/105; PULSE 74; RESP 16; O2SAT 99
[2023-11-01] MEDS: Ketorolac 15 MG/ML Vial IV (21:06)
[2023-11-01 21:17] VITALS: BP 159/90; PULSE 78; RESP 16; TEMP -7.7; TEMP 18; O2SAT 97
== END 2023-11-01 21:18 | disposition home or self-care (01) ==
PROVIDERS: Nurse Practitioner; Emergency Provider Emergency Medicine; PCP Family Medicine; Visit Provider Emergency Medicine
DX: R10.12 Left upper quadrant pain (principal); F41.9 Anxiety disorder, unspecified; I10 Essential (primary) hypertension; R11.0 Nausea; F32.A Depression, unspecified; F17.290 Nicotine dependence, other tobacco product, uncomplicated; Z79.899 Other long term (current) drug therapy; Z90.49 Acquired absence of other specified parts of digestive tract
CPT/HCPCS: 74177; 80053; 81001; 83690; 85025; 96361; 96374; 96375; 99283; J7030; Q9967; A4216; J2405